=== PATIENT | female | born 1975 | race Caucasian/White ===

== ENCOUNTER 2016-08-24 21:38 | Emergency (ER) | payer MEDICARE, MEDICAID ==
[~2016-08-24] VITALS: Ht 160 cm; Wt 113.4 kg
[~2016-08-24 21:38] MED LIST: FIBERCON PO; FLAG500T; LEVA500T; METROCR.75 TOPICAL; PEPCID40 PO; PRIL20CA; PRILOSEC40 PO; PRILOSECOT PO; PROTONIX40 PO; TESSALO100 PO; TUSSIONEX PO; TYLENOLCOD PO; VIOXX50 PO; ZOLO50TA; [UNRECOGNIZED DRUG - OTHER]; [UNRECOGNIZED DRUG - OTHER] TOPICAL
[2016-08-24] MEDS ORDERED: VOLT1GEL24 TD (21:48)
[2016-08-24] MEDS ORDERED: TOPA100T8 PO (21:48)
[2016-08-24] MEDS ORDERED: VERAP80TA PO (21:48)
[2016-08-25 01:53] VITALS: BP 137/84
[2016-08-25] MEDS ORDERED: IBUPROFEN 800 MG TAB PO ONE (02:00)
--- NOTE | 2016-08-25 08:59 | REP ---
LEFT FOOT, FOUR VIEWS: There is no evidence of an acute fracture, dislocation or intrinsic bone disease. IMPRESSION: No fracture or dislocation. Signed by Jonathan Jiang MD 08/25/2016 04:35 P
--- NOTE | 2016-08-25 08:59 | REP ---
LEFT ANKLE: Four views of the left ankle are performed. There is no acute fracture or dislocation. No intrinsic osseous pathology is seen. The ankle mortise is anatomic. There is soft tissue swelling. IMPRESSION: No evidence of acute fracture or dislocation. Signed by Jonathan Jiang MD 08/25/2016 04:35 P
== END 2016-08-25 01:58 | disposition home or self-care (01) ==
LOC: M ED 23:22
DX: S92.332A Displaced fracture of third metatarsal bone, left foot, initial encounter for closed fracture (principal); W01.0XXA Fall on same level from slipping, tripping and stumbling without subsequent striking against object, initial encounter; Y92.018 Other place in single-family (private) house as the place of occurrence of the external cause; Y93.89 Activity, other specified; Y99.8 Other external cause status

== ENCOUNTER → 2016-11-15 | Outpatient (REF) | payer MEDICARE, MEDICAID ==
[~2016-11-15] MED LIST changes: +TOPA100T12 PO; +VERAP80TA PO; +VOLT1GEL15 TD
[2016-11-15 18:50] LABS: MEAN CORPUSCULAR HEMOGLOBIN 23.9 pg (27.0-33.0); MEAN CORPUSCULAR VOLUME 76.9 fl (80.0-96.0); RED CELL DISTRIBUTION WIDTH 15.7 % (11.5-14.5); WHITE BLOOD COUNT 6.8 K/mm3 (4.0-10.0)
[2016-11-15 19:11] LABS: ALBUMIN 3.5 GM/DL (3.2-5.2); ALKALINE PHOSPHATASE 118 U/L (45-117); ALT/SGPT 14 U/L (12-78); ANION GAP 9 MEQ/L (8-16); AST/SGOT 6 U/L (15-37); BILIRUBIN,TOTAL 0.5 MG/DL (0.2-1.0); BLOOD UREA NITROGEN 8 MG/DL (7-18); CALCIUM LEVEL 9.1 MG/DL (8.5-10.1); CARBON DIOXIDE LEVEL 26 MEQ/L (21-32); CHLORIDE LEVEL 106 MEQ/L (98-107); CREATININE FOR GFR 0.72 MG/DL (0.55-1.02); FREE T4 1.07 NG/DL (0.76-1.46); GLOMERULAR FILTRATION RATE > 60.0 (>60); GLUCOSE, FASTING 86 MG/DL (70-105); SODIUM LEVEL 141 MEQ/L (136-145)
== END ==
LOC: M SFHCLERA 10:26
PROVIDERS: ATTEND Family Medicine
DX: R11.2 Nausea with vomiting, unspecified (principal); Z79.899 Other long term (current) drug therapy
CPT/HCPCS: 80053; 83036; 83690; 84439; 84443; 85027; G0463

== ENCOUNTER → 2017-06-01 | Outpatient (REF) | payer MEDICARE, MEDICAID | LOC: M SFHCWAGY 10:18 | DX: Z12.4 Encounter for screening for malignant neoplasm of cervix (principal); R87.610 Atypical squamous cells of undetermined significance on cytologic smear of cervix (ASC-US) | CPT/HCPCS: G0123 ==

== ENCOUNTER → 2017-06-01 | Outpatient (CLI) | payer MEDICARE, MEDICAID | LOC: M WHC 09:42 | DX: Z12.31 Encounter for screening mammogram for malignant neoplasm of breast (principal); Z92.0 Personal history of contraception; Z12.4 Encounter for screening for malignant neoplasm of cervix; R87.610 Atypical squamous cells of undetermined significance on cytologic smear of cervix (ASC-US) | CPT/HCPCS: 77067; G0123 ==

== ENCOUNTER 2017-09-01 00:51 | Emergency (ER) | payer MEDICARE, MEDICAID | END 2017-09-01 04:15 | disposition home or self-care (01) | LOC: M ED 00:51 | DX: S90.31XA Contusion of right foot, initial encounter (principal); W19.XXXA Unspecified fall, initial encounter; Y92.009 Unspecified place in unspecified non-institutional (private) residence as the place of occurrence of the external cause; K21.9 Gastro-esophageal reflux disease without esophagitis; F33.9 Major depressive disorder, recurrent, unspecified; F41.9 Anxiety disorder, unspecified; Z79.899 Other long term (current) drug therapy | CPT/HCPCS: 73620 ==

== ENCOUNTER → 2018-01-03 | Outpatient (REF) | payer MEDICARE, MEDICAID ==
[2018-01-03 12:03] LABS: HEMATOCRIT 35.2 % (36.0-47.0); HEMOGLOBIN 10.5 g/dl (12.0-15.5); MEAN CORPUSCULAR HEMOGLOBIN 23.2 pg (27.0-33.0); MEAN CORPUSCULAR HGB CONC 29.8 g/dl (32.0-36.5); MEAN CORPUSCULAR VOLUME 77.7 fl (80.0-96.0); PLATELET COUNT, AUTOMATED 354 10^3/uL (150-450); RED BLOOD COUNT 4.53 10^6/uL (4.00-5.40); RED CELL DISTRIBUTION WIDTH 18.6 % (11.5-14.5); WHITE BLOOD COUNT 5.7 10^3/uL (4.0-10.0)
[2018-01-03 13:04] LABS: ALBUMIN 3.4 GM/DL (3.2-5.2); ALKALINE PHOSPHATASE 101 U/L (45-117); ALT/SGPT 15 U/L (12-78); ANION GAP 11 MEQ/L (8-16); AST/SGOT 11 U/L (7-37); BILIRUBIN,TOTAL 0.3 MG/DL (0.2-1.0); BLOOD UREA NITROGEN 12 MG/DL (7-18); CALCIUM LEVEL 8.4 MG/DL (8.5-10.1); CARBON DIOXIDE LEVEL 22 MEQ/L (21-32); CHLORIDE LEVEL 112 MEQ/L (98-107); CHOLESTEROL LEVEL 184 MG/DL (<200); CREATININE FOR GFR 0.63 MG/DL (0.55-1.30); FREE T4 0.94 NG/DL (0.76-1.46); GLOMERULAR FILTRATION RATE > 60.0 (>58); GLUCOSE, FASTING 71 MG/DL (70-100); HDL CHOLESTEROL 42 MG/DL (>40); LDL CHOLESTEROL 121.8 MG/DL (<100); NON-HDL-C 142 MG/DL; POTASSIUM SERUM 4.8 MEQ/L (3.5-5.1); SODIUM LEVEL 145 MEQ/L (136-145); TOTAL PROTEIN 6.8 GM/DL (6.4-8.2); TRIGLYCERIDES LEVEL 101 MG/DL (<150)
[2018-01-03 13:05] LABS: FOLATE > 24.0 NG/ML; TOTAL 25(OH) VITAMIN D 33.6 NG/ML (30.0-100.0); VITAMIN B12 LEVEL 299 PG/ML
== END ==
LOC: M SFHCPLAZ 08:34
DX: D51.9 Vitamin B12 deficiency anemia, unspecified (principal); G43.909 Migraine, unspecified, not intractable, without status migrainosus; F41.9 Anxiety disorder, unspecified; E78.2 Mixed hyperlipidemia; E55.9 Vitamin D deficiency, unspecified
CPT/HCPCS: 82746

== ENCOUNTER → 2018-05-21 | Outpatient (REF) | payer MEDICARE, MEDICAID ==
[~2018-05-21] MED LIST changes: +ZOFR4TAB16 PO
[2018-05-21 17:57] LABS: HEMOGLOBIN 11.3 g/dl (12.0-15.5); MEAN CORPUSCULAR HEMOGLOBIN 22.5 pg (27.0-33.0); MEAN CORPUSCULAR HGB CONC 29.7 g/dl (32.0-36.5); MEAN CORPUSCULAR VOLUME 75.5 fl (80.0-96.0); PLATELET COUNT, AUTOMATED 399 10^3/uL (150-450); RED BLOOD COUNT 5.03 10^6/uL (4.00-5.40); WHITE BLOOD COUNT 7.2 10^3/uL (4.0-10.0)
[2018-05-21 18:03] LABS: PERCENT SATURATION 4.9 % (13.2-45.0)
== END ==
LOC: M SFHCPLAZ 15:27
PROVIDERS: ATTEND Nurse Practitioner Family
DX: D50.9 Iron deficiency anemia, unspecified (principal); D51.9 Vitamin B12 deficiency anemia, unspecified
CPT/HCPCS: 36415; 82607; 82728; 82746; 83550; 85027; 85046; G0463

== ENCOUNTER → 2018-07-20 | Outpatient (REF) | payer MEDICARE, MEDICAID ==
[2018-07-20 16:58] LABS: INFLUENZA A AMPLIFICATION NEGATIVE (NEGATIVE); INFLUENZA B AMPLIFICATION NEGATIVE (NEGATIVE)
== END ==
LOC: M LAB REF 10:13
PROVIDERS: ATTEND Nurse Practitioner Family
DX: J11.1 Influenza due to unidentified influenza virus with other respiratory manifestations (principal)

== ENCOUNTER → 2018-08-06 | Outpatient (CLI) | payer MEDICARE, MEDICAID ==
--- NOTE | 2018-08-06 15:46 | REPMRS ---
Patient History The patient states she had a clinical breast exam in 07/2018. Patient is nulliparous. Family history of prostate cancer at age 54 in father, breast cancer at age 50 in maternal aunt. Taking hormonal contraceptives for 11 years. Digital Woman Screen Mammo: August 06, 2018 - Exam #: [id number] Bilateral CC and MLO view(s) were taken. Technologist: Violet Sharp, Technologist Prior study comparison: June 01, 2017, digital woman screen mammo performed at [facility]. FINDINGS: There are scattered fibroglandular densities. There has been no change in the appearance of the mammogram from the prior studies. There is a mild amount of scattered fibroglandular density which is fairly symmetric. There is no interval development of dominant mass, architectural distortion, or clustered microcalcification suggestive of malignancy. 3-D tomosynthesis shows no additional findings. Assessment: BI-RADS/ACR category 1 mammogram. Negative Mammogram. Recommendation Breast MRI of both breasts in 6 months. Routine screening mammogram of both breasts in 1 year (for women over age 40). This patient's Lifetime Breast Cancer RIsk is estimated at 20.4 %. Annual screening Breast MRI scanniing is recommended for patient's whose lifetime risk assessment is over 20%. This mammogram was interpreted with the aid of an FDA-approved computer-aided dectection system. Electronically Signed By: Marek Fan MD 08/06/18 [id number]
== END ==
LOC: M WHC 10:47
PROVIDERS: ATTEND Nurse Practitioner Women's Health
DX: Z12.31 Encounter for screening mammogram for malignant neoplasm of breast (principal); Z80.42 Family history of malignant neoplasm of prostate; Z92.0 Personal history of contraception
CPT/HCPCS: 77063; 77067; G0463

== ENCOUNTER → 2018-11-04 | Outpatient (REF) | payer MEDICARE, MEDICAID ==
[2018-11-04 12:29] LABS: HEMATOCRIT 37.5 % (36.0-47.0); HEMOGLOBIN 11.2 g/dl (12.0-15.5); MEAN CORPUSCULAR HEMOGLOBIN 23.4 pg (27.0-33.0); MEAN CORPUSCULAR HGB CONC 29.9 g/dl (32.0-36.5); MEAN CORPUSCULAR VOLUME 78.3 fl (80.0-96.0); PLATELET COUNT, AUTOMATED 282 10^3/uL (150-450); RED BLOOD COUNT 4.79 10^6/uL (4.00-5.40); WHITE BLOOD COUNT 5.1 10^3/uL (4.0-10.0)
== END ==
LOC: M SFHCPLAZ 08:51
PROVIDERS: ATTEND Nurse Practitioner Family
DX: D50.9 Iron deficiency anemia, unspecified (principal)

== ENCOUNTER → 2019-02-13 | Outpatient (CLI) | payer MEDICARE, MEDICAID ==
[~2019-02-13] MED LIST changes: +PROHANCE 279.3MG/ML 15ML VIAL (A9576) As Ordered ONE; +PROHANCE 279.3MG/ML 5ML VIAL (A9576) As Ordered ONE
--- NOTE | 2019-02-13 16:19 | REP ---
Bilateral breast MRI study without and with IV gadolinium: History: High risk breast cancer screening study. Positive family history of malignancy. Comparison mammography August 06, 2018. Technique: 3 Yvonne MRI imaging was performed with a dedicated breast coil. Axial, coronal, and sagittal T1 and T2-weighted scans were obtained with and without fat saturation in the usual fashion. The study includes dynamically acquired post gadolinium enhanced imaging subtraction imaging. Maximal intensity projection and multiplanar re-formation imaging is included as well. The study was interpreted with the aid of [employer], an FDA approved computer-aided detection (CAD) software program, on a dedicated breast MRI work station. The gadolinium enhancement dose is 19 ml of intravenous ProHance. Findings: Axial and coronal T2-weighted scans show no evidence of axillary lymphadenopathy or significant breast cystic change on either side. High-resolution pre and postcontrast imaging shows no suspicious morphologic abnormality in either breast. There is a mild pattern of fibroglandular tissue bilaterally. There is minimal background parenchymal enhancement. Dynamically acquired sequential post contrast images show no suspicious focus of enhancement and washout in either breast to suggest malignancy. Subtraction images are unremarkable. Impression: BIRADS category 1 negative bilateral breast MRI study. Repeat screening breast MRI study suggested 1 year for patient's whose breast cancer lifetime risk assessment is greater than 20% Electronically Signed by Ge Fan MD 02/13/2019 06:29 P
== END ==
LOC: M RAD 09:39
PROVIDERS: ATTEND Nurse Practitioner Women's Health
DX: Z80.3 Family history of malignant neoplasm of breast (principal); Z12.31 Encounter for screening mammogram for malignant neoplasm of breast; N60.31 Fibrosclerosis of right breast; N60.32 Fibrosclerosis of left breast
CPT/HCPCS: A9576; C8908

== ENCOUNTER → 2019-03-20 | Outpatient (CLI) | payer MEDICARE, MEDICAID ==
[~2019-03-20] MED LIST changes: +GLUCAGON FOR INJ 1 MG VIAL (J1610) As Ordered ONE; +ISOVUE-370 76% 100ML VIAL (Q9967) As Ordered ONE; -PROHANCE 279.3MG/ML 15ML VIAL (A9576) As Ordered ONE; -PROHANCE 279.3MG/ML 5ML VIAL (A9576) As Ordered ONE; +VoLumen 0.1% SUSPENSION 450ML BOTTLE As Ordered ONE
--- NOTE | 2019-03-20 13:06 | REP ---
CT Enterography: With IV and oral contrast. History: Iron deficiency anemia. Comparison study: Comparison CT abdomen and pelvis December 23, 2015. CT enterography Technique: The patient ingested oral Volumen for PO contrast per protocol. 0.6 mg of intravenous glucagon is administered. 100 ml of Isovue 370 is given intravenously for intravenous contrast. Helical scanning is acquired. Arterial phase and delayed phase imaging was acquired. Thick slab coronal and sagittal MIP images are generated. In addition coronal and sagittal multiplanar re-formation images are generated and reviewed along with axial images. CT enterography findings: Preliminary digital cath lab tech radiograph demonstrates an unremarkable bowel gas pattern. The lung bases are clear. There is mild diffuse fatty infiltration of the liver. The patient is status post gastric bypass procedure. The efferent jejunal loop is seen coursing in front of the transverse colon. There is mild air and fluid distension of the gastric pouch question mural thickening at the gastrojejunostomy anastomosis. No adrenal lesion is seen. The spleen is unremarkable. The kidneys enhance symmetrically are morphologically intact. There are two adjacent small bowel mesenteric lymph nodes in the left upper abdomen. These measure 13 and 12 mm in greatest diameter respectively. These lymph nodes are only slightly larger than on the December 23, 2015 prior study. No other visible small bowel mesenteric lymph nodes. No retroperitoneal adenopathy is seen. There is an IUD in place in the uterus. There is a small right fundal uterine fibroid. No ovarian abnormality is appreciated. Urinary bladder is intact. No abdominal wall defect is seen. Small and large bowel loops are otherwise unremarkable. The gallbladder is surgically absent. Impression: Status post gastric bypass. Mild dilation of the gastric pouch and question of mucosal thickening at the gastrojejunostomy. Question marginal ulcer. Two borderline mesenteric lymph nodes in the left upper abdomen. 1.3 cm in diameter. These measured 11 and 9 mm in diameter in 2016. No other abnormality. Electronically Signed by Ge Fan MD 03/20/2019 01:13 P
== END ==
LOC: M RAD 10:02
PROVIDERS: ATTEND Physician Assistant Medical
DX: D50.9 Iron deficiency anemia, unspecified (principal); Z98.84 Bariatric surgery status; D25.9 Leiomyoma of uterus, unspecified; Z97.5 Presence of (intrauterine) contraceptive device
CPT/HCPCS: 74177; J1610; Q9967

== ENCOUNTER 2019-05-13 11:47 | Day surgery (SDC) | payer MEDICARE, MEDICAID ==
[~2019-05-13] VITALS: Ht 160 cm; Wt 96.2 kg
[~2019-05-13 11:47] MED LIST changes: +BUSP1TAB PO; +FAMO40TA3 PO; -GLUCAGON FOR INJ 1 MG VIAL (J1610) As Ordered ONE; -ISOVUE-370 76% 100ML VIAL (Q9967) As Ordered ONE; +MIRE1IUD IU; +MULTCAP PO; +NS 1,000 ML IV ONE; +OMEP40CA97 PO; -VoLumen 0.1% SUSPENSION 450ML BOTTLE As Ordered ONE
[2019-05-13] MEDS ORDERED: propofoL 200 MG/20 ML VIAL As Ordered ONE (13:31)
[2019-05-13] MEDS ORDERED: LIDOCAINE 2% INJ 100 MG/5 ML SDV (FOR ANES.) As Ordered ONE (13:31)
--- NOTE | 2019-05-13 14:23 | ROOR ---
Patient Name: Silva Andujar Procedure Date: 05/13/2019 1:37 PM Date of : 1975 Age: 44 Room: [facility] Gender: Female Note Status: Finalized Procedure: Upper GI endoscopy Indications: Iron deficiency anemia, Heartburn Providers: Michael Gagnon MD Referring MD: Ana Little NP Requesting Provider: Medicines: Monitored Anesthesia Care Complications: No immediate complications. Procedure: Pre-Anesthesia Assessment: - Prior to the procedure, a History and Physical was performed, and patient medications and allergies were reviewed. The patient is competent. The risks and benefits of the procedure and the sedation options and risks were discussed with the patient. All questions were answered and informed consent was obtained. Patient identification and proposed procedure were verified by the physician, the nurse and the anesthesiologist in the procedure room. Mental Status Examination: alert and oriented. Airway Examination: normal oropharyngeal airway and neck mobility. Respiratory Examination: clear to auscultation. CV Examination: normal. Prophylactic Antibiotics: The patient does not require prophylactic antibiotics. Prior Anticoagulants: The patient has taken no previous anticoagulant or antiplatelet agents. ASA Grade Assessment: II - A patient with mild systemic disease. After reviewing the risks and benefits, the patient was deemed in satisfactory condition to undergo the procedure. The anesthesia plan was to use monitored anesthesia care (MAC). Immediately prior to administration of medications, the patient was re-assessed for adequacy to receive sedatives. The heart rate, respiratory rate, oxygen saturations, blood pressure, adequacy of pulmonary ventilation, and response to care were monitored throughout the procedure. The physical status of the patient was re-assessed after the procedure. The Endoscope was introduced through the mouth, and advanced to the second part of duodenum. The upper GI endoscopy was accomplished without difficulty. The patient tolerated the procedure well. Findings: The Z-line was regular and was found 36 cm from the incisors. The examined esophagus was normal. Evidence of a gastric bypass was found. A gastric pouch with a medium size was found. The staple line appeared intact. The gastrojejunal anastomosis was characterized by edema, erythema, inflammation and ulceration and stenosis. This was traversed. The jejunojejunal anastomosis was characterized by healthy appearing mucosa. The fxfgoxxs-be-lsaikqa limb was not examined as it could not be found. Two biopsies were obtained in the gastric body and at the anastomosis with cold forceps for histology and Helicobacter pylori testing. Verification of patient identification for the specimen was done by the physician, nurse and dietetic technician registered using the patient's name, date and medical record number. Estimated blood loss was minimal. The examined jejunum was normal. Biopsies for histology were taken with a cold forceps for evaluation of celiac disease. Impression: - Z-line regular, 36 cm from the incisors. - Normal esophagus. - Gastric bypass with a medium-sized pouch and intact staple line. Gastrojejunal anastomosis characterized by edema, erythema, inflammation and ulceration and stenosis. - Normal examined jejunum. Biopsied. - Two biopsies were obtained in the gastric body and at the anastomosis. Recommendation: - Patient has a contact number available for emergencies. The signs and symptoms of potential delayed complications were discussed with the patient. Return to normal activities tomorrow. Written discharge instructions were provided to the patient. - Resume previous diet. - Use Prilosec (omeprazole) 40 mg PO Daily - to be taken watershed manager on empty stomach for 3 months. - Use Pepcid (famotidine) 20 mg PO Q 12 hr for 3 months. - Follow an antireflux regimen. - Telephone GI clinic for pathology results in 2 weeks. - Return to GI clinic in [facility] (address [address], [address], [place], [facility]) in 4 -- 6 weeks. Please call GI clinic @ [phone] for apppointment date and time. - Return to primary care physician. Michael Gagnon MD Michael Gagnon MD 05/13/2019 2:22:48 PM Electronically signed by Michael Gagnon MD Number of Addenda: 0 Note Initiated On: 05/13/2019 1:37 PM Estimated Blood Loss: Estimated blood loss was minimal.
--- NOTE | 2019-05-13 14:27 | ROOR ---
Patient Name: Silva Andujar Procedure Date: 05/13/2019 1:38 PM Date of : 1975 Age: 44 Room: [facility] Gender: Female Note Status: Finalized Procedure: Colonoscopy Indications: Iron deficiency anemia Providers: Michael Gagnon MD Referring MD: Ana Little NP Requesting Provider: Medicines: Monitored Anesthesia Care Complications: No immediate complications. Procedure: Pre-Anesthesia Assessment: - Prior to the procedure, a History and Physical was performed, and patient medications and allergies were reviewed. The patient is competent. The risks and benefits of the procedure and the sedation options and risks were discussed with the patient. All questions were answered and informed consent was obtained. Patient identification and proposed procedure were verified by the physician, the nurse and the anesthesiologist in the procedure room. Mental Status Examination: alert and oriented. Airway Examination: normal oropharyngeal airway and neck mobility. Respiratory Examination: clear to auscultation. Prophylactic Antibiotics: The patient does not require prophylactic antibiotics. Prior Anticoagulants: The patient has taken no previous anticoagulant or antiplatelet agents. ASA Grade Assessment: II - A patient with mild systemic disease. After reviewing the risks and benefits, the patient was deemed in satisfactory condition to undergo the procedure. The anesthesia plan was to use monitored anesthesia care (MAC). Immediately prior to administration of medications, the patient was re-assessed for adequacy to receive sedatives. The heart rate, respiratory rate, oxygen saturations, blood pressure, adequacy of pulmonary ventilation, and response to care were monitored throughout the procedure. The physical status of the patient was re-assessed after the procedure. The Colonoscope was introduced through the anus and advanced to the terminal ileum, with identification of the appendiceal orifice and IC valve. The colonoscopy was performed without difficulty. The patient tolerated the procedure well. The quality of the bowel preparation was fair except the sigmoid colon was poor, the descending colon was poor and the transverse colon was poor. The terminal ileum, ileocecal valve, appendiceal orifice, and rectum were photographed. Scope insertion time was 4 minutes. Scope withdrawal time was 9 minutes. The total duration of the procedure was 14 minutes. Findings: The perianal and digital rectal examinations were normal. The terminal ileum appeared normal. A large amount of stool was found from sigmoid to transverse colon, making visualization difficult. Lavage of the area was performed using a large amount of sterile water, resulting in incomplete clearance with continued poor visualization. A 3 mm polyp was found in the ascending colon. The polyp was sessile. The polyp was removed with a cold biopsy forceps. Resection and retrieval were complete. Verification of patient identification for the specimen was done by the physician and nurse using the patient's name, date and medical record number. Estimated blood loss was minimal. Patchy moderate mucosal changes characterized by erythema, friability and granularity were found in the descending colon. Biopsies were taken with a cold forceps for histology. Non-bleeding external and internal hemorrhoids were found during retroflexion. The hemorrhoids were medium-sized. Impression: - The examined portion of the ileum was normal. - Stool from sigmoid to transverse colon. - One 3 mm polyp in the ascending colon, removed with a cold biopsy forceps. Resected and retrieved. - Patchy moderate mucosal changes were found in the descending colon. Biopsied. - Non-bleeding external and internal hemorrhoids. Recommendation: - Patient has a contact number available for emergencies. The signs and symptoms of potential delayed complications were discussed with the patient. Return to normal activities tomorrow. Written discharge instructions were provided to the patient. - High fiber diet. - Continue present medications. - Await pathology results. - Repeat colonoscopy in 1 year to check healing and because the bowel preparation was poor. - Return to GI clinic in [facility] (address [address], [address], [place], [facility]) in 4 -- 6 weeks. Please call GI clinic @ [phone] for apppointment date and time. - Return to primary care physician. Michael Gagnon MD Michael Gagnon MD 05/13/2019 2:27:20 PM Electronically signed by Michael Gagnon MD Number of Addenda: 0 Note Initiated On: 05/13/2019 1:38 PM Estimated Blood Loss: Estimated blood loss was minimal.
[2019-05-13 15:00] VITALS: BP 135/87
== END 2019-05-13 15:25 | disposition home or self-care (01) ==
LOC: M OPP 11:47
PROVIDERS: ATTEND Internal Medicine Gastroenterology
DX: K64.8 Other hemorrhoids (principal); D12.2 Benign neoplasm of ascending colon; K63.89 Other specified diseases of intestine; D50.9 Iron deficiency anemia, unspecified; R12 Heartburn; Z98.84 Bariatric surgery status

== ENCOUNTER → 2019-07-01 | Outpatient (CLI) | payer MEDICARE, MEDICAID ==
[~2019-07-01] MED LIST changes: -NS 1,000 ML IV ONE
[2019-07-01 11:02] LABS: HEMATOCRIT 40.2 % (36.0-47.0); MEAN CORPUSCULAR HEMOGLOBIN 22.4 pg (27.0-33.0); MEAN CORPUSCULAR HGB CONC 29.9 g/dl (32.0-36.5); MEAN CORPUSCULAR VOLUME 75.1 fl (80.0-96.0); PLATELET COUNT, AUTOMATED 332 10^3/uL (150-450); RED BLOOD COUNT 5.35 10^6/uL (4.00-5.40); WHITE BLOOD COUNT 5.8 10^3/uL (4.0-10.0)
[2019-07-01 11:12] LABS: ALT/SGPT 14 U/L (12-78); BILIRUBIN,TOTAL 0.5 MG/DL (0.2-1.0); BLOOD UREA NITROGEN 16 MG/DL (7-18); CALCIUM LEVEL 8.8 MG/DL (8.5-10.1); CARBON DIOXIDE LEVEL 24 MEQ/L (21-32); CHLORIDE LEVEL 114 MEQ/L (98-107); CHOLESTEROL LEVEL 216 MG/DL (<200); CHOLESTEROL RISK RATIO 4.909 (<5); CREATININE FOR GFR 0.86 MG/DL (0.55-1.30); FERRITIN 3 NG/ML (8-252); FREE T4 0.98 NG/DL (0.76-1.46); GLOMERULAR FILTRATION RATE > 60.0 (>58); GLUCOSE, FASTING 87 MG/DL (70-100); HDL CHOLESTEROL 44 MG/DL (>40); IRON (FE) 31 UG/DL (50-170); LDL CHOLESTEROL 151 MG/DL (<100); MAGNESIUM LEVEL 2.5 MG/DL (1.8-2.4); NON-HDL-C 172 MG/DL; PERCENT SATURATION 7.4 % (13.2-45.0); PHOSPHORUS LEVEL 3.2 MG/DL (2.5-4.9); POTASSIUM SERUM 3.9 MEQ/L (3.5-5.1); SODIUM LEVEL 143 MEQ/L (136-145); TOTAL IRON BINDING CAPACITY 420 UG/DL (250-450); TOTAL PROTEIN 7.4 GM/DL (6.4-8.2); TRIGLYCERIDES LEVEL 104 MG/DL (<150)
[2019-07-01 11:48] LABS: VITAMIN B12 LEVEL 275 PG/ML (247-911)
[2019-07-05 00:07] LABS: VITAMIN A, RETINOL LEVEL 48.7 ug/dL (20.1-62.0); VITAMIN B1 LEVEL WHOLE BLOOD 81.5 nmol/L (66.5-200.0)
== END ==
LOC: M PLALAB 08:54
PROVIDERS: ATTEND Family Medicine
DX: E55.9 Vitamin D deficiency, unspecified (principal); D51.9 Vitamin B12 deficiency anemia, unspecified; E78.2 Mixed hyperlipidemia; D50.9 Iron deficiency anemia, unspecified; Z13.1 Encounter for screening for diabetes mellitus; K90.89 Other intestinal malabsorption; F41.1 Generalized anxiety disorder

== ENCOUNTER → 2019-10-20 | Outpatient (CLI) | payer MEDICARE, MEDICAID ==
[~2019-10-20] MED LIST changes: +MIRA3350 PO; +VENL75CA47 PO; +ZYRTTAB8 PO
== END ==
LOC: M LABSMTC 09:42
PROVIDERS: ATTEND Anesthesiology
DX: Z03.818 Encounter for observation for suspected exposure to other biological agents ruled out (principal); Z11.59 Encounter for screening for other viral diseases
CPT/HCPCS: C9803; U0003

== ENCOUNTER 2019-10-23 08:21 | Day surgery (SDC) | payer MEDICARE, MEDICAID ==
[~2019-10-23] VITALS: Ht 160 cm; Wt 95.0 kg
[~2019-10-23 08:21] MED LIST changes: -MIRA3350 PO; -ZYRTTAB8 PO
[2019-10-23] MEDS ORDERED: ZYRTTAB8 PO (08:44)
[2019-10-23] MEDS ORDERED: MIRA3350 PO (08:44)
[2019-10-23] MEDS ORDERED: NS 1,000 ML IV ONE (08:45)
[2019-10-23] MEDS ORDERED: LIDOCAINE 2% 100MG/5ML SDV (FOR ANES.) As Ordered ONE (09:53)
[2019-10-23] MEDS ORDERED: fentaNYL 100 MCG/2 ML INJECTION (J3010) As Ordered ONE (09:53)
[2019-10-23] MEDS ORDERED: propofoL 500 MG/50 ML VIAL As Ordered ONE (09:53)
[2019-10-23 10:20] VITALS: BP 150/84
--- NOTE | 2019-10-23 10:44 | ROOR ---
Patient Name: Silva Andujar Procedure Date: 10/23/2019 9:44 AM Date of : 1975 Age: 44 Room: [facility] Gender: Female Note Status: Finalized Procedure: Upper GI endoscopy Indications: Epigastric abdominal pain, Heartburn Providers: Michael Gagnon MD Referring MD: Veronica Bone MD Requesting Provider: Medicines: Monitored Anesthesia Care Complications: No immediate complications. Procedure: Pre-Anesthesia Assessment: - Prior to the procedure, a History and Physical was performed, and patient medications and allergies were reviewed. The patient is competent. The risks and benefits of the procedure and the sedation options and risks were discussed with the patient. All questions were answered and informed consent was obtained. Patient identification and proposed procedure were verified by the physician, the nurse and the anesthesiologist in the procedure room. Mental Status Examination: alert and oriented. Airway Examination: normal oropharyngeal airway and neck mobility. Respiratory Examination: clear to auscultation. CV Examination: normal. Prophylactic Antibiotics: The patient does not require prophylactic antibiotics. Prior Anticoagulants: The patient has taken no previous anticoagulant or antiplatelet agents. ASA Grade Assessment: II - A patient with mild systemic disease. After reviewing the risks and benefits, the patient was deemed in satisfactory condition to undergo the procedure. The anesthesia plan was to use monitored anesthesia care (MAC). Immediately prior to administration of medications, the patient was re-assessed for adequacy to receive sedatives. The heart rate, respiratory rate, oxygen saturations, blood pressure, adequacy of pulmonary ventilation, and response to care were monitored throughout the procedure. The physical status of the patient was re-assessed after the procedure. The Endoscope was introduced through the mouth, and advanced to the afferent and efferent jejunal loops. The upper GI endoscopy was accomplished without difficulty. The patient tolerated the procedure well. Findings: The examined esophagus was normal. The Z-line was regular and was found 36 cm from the incisors. Evidence of a Kristina-en-Y gastrojejunostomy was found. The gastrojejunal anastomosis was characterized by congestion, erythema, severe stenosis and ulceration. This was traversed. The aakir-lh-ywygyqh limb was characterized by congestion, inflammation, severe stenosis and ulceration. The jejunojejunal anastomosis was characterized by healthy appearing mucosa. The jjbuisgj-vr-vliitfe limb was not examined as it could not be traversed. Two biopsies were obtained at the anastomosis with cold forceps for histology. Verification of patient identification for the specimen was done by the physician and nurse using the patient's name, date and medical record number. Estimated blood loss was minimal. Normal mucosa was found in the jejunum. Impression: - Normal esophagus. - Z-line regular, 36 cm from the incisors. - Kristina-en-Y gastrojejunostomy with gastrojejunal anastomosis characterized by congestion, erythema, ulceration and severe stenosis. - Normal mucosa was found in the jejunum. - Two biopsies were obtained at the anastomosis. Recommendation: - Patient has a contact number available for emergencies. The signs and symptoms of potential delayed complications were discussed with the patient. Return to normal activities tomorrow. Written discharge instructions were provided to the patient. - Advance diet as tolerated. - Post gastric bypass diet (small frequent meals and avoid fatty/ fried foods). - Use Pepcid (famotidine) 20 mg PO Twice daily ( take early education teacher on empty stomach and at bedtime) for 3 months. - Use sucralfate tablets 1 gram PO QID for 6 weeks. - Await pathology results. - Repeat upper endoscopy in 3 months to check healing, per protocol and for retreatment. - Return to GI clinic in [facility] (address [address], [address], [place], [address]) in 4 -- 6 weeks. Please call GI clinic @ [phone] for apppointment date and time. - Return to primary care physician. Michael Gagnon MD Michael Gagnon MD 10/23/2019 10:44:08 AM Electronically signed by Michael Gagnon MD Number of Addenda: 0 Note Initiated On: 10/23/2019 9:44 AM Estimated Blood Loss: Estimated blood loss was minimal.
== END 2019-10-23 10:52 | disposition home or self-care (01) ==
LOC: M OPP 08:21
PROVIDERS: ATTEND Internal Medicine Gastroenterology
DX: R12 Heartburn (principal); Z98.0 Intestinal bypass and anastomosis status; Z98.84 Bariatric surgery status; Z79.899 Other long term (current) drug therapy
CPT/HCPCS: 43239; 88305; J3010

== ENCOUNTER → 2019-11-04 | Outpatient (REF) | payer MEDICARE, MEDICAID ==
[~2019-11-04] MED LIST changes: +MIRA3350 PO; +ZYRTTAB8 PO
== END ==
LOC: M SFHCWAGY 15:00
PROVIDERS: ATTEND Nurse Practitioner Women's Health
DX: Z12.4 Encounter for screening for malignant neoplasm of cervix (principal)

== ENCOUNTER → 2019-11-25 | Outpatient (CLI) | payer MEDICARE, MEDICAID ==
[~2019-11-25] MED LIST changes: +AIMO70IN; +MAXA10TA14 PO; +SUCR1TAB56; +TOPI25TA10
--- NOTE | 2019-12-21 10:19 | REPMRS ---
Patient History The patient states she had a clinical breast exam in October 2019. Patient is nulliparous. Family history of prostate cancer at age 54 in father, breast cancer at age 50 in maternal aunt. Taking hormonal contraceptives for 11 years. Digital Woman Screen Mammo: November 25, 2019 - Exam #: [id number] Bilateral CC and MLO view(s) were taken. Technologist: Lorena Jenkins, Technologist Prior study comparison: August 06, 2018, bilateral digital woman screen mammo performed at [facility]. June 01, 2017, digital woman screen mammo performed at [facility]. FINDINGS: There are scattered fibroglandular densities. There has been no change in the appearance of the mammogram from the prior studies. There is a mild amount of scattered fibroglandular density which is fairly symmetric. There is no interval development of dominant mass, architectural distortion, or grouped microcalcification suggestive of malignancy. 3-D tomosynthesis shows no additional findings. Report was delayed due to a protracted network disruption experienced by this facility. Assessment: BI-RADS/ACR category 1 mammogram. Negative Mammogram. Recommendation Breast MRI of both breasts in 6 months. Routine screening mammogram of both breasts in 1 year (for women over age 40). This patient's Lifetime Breast Cancer Risk is estimated at 20.2 %. Annual screening Breast MRI scanniing is recommended for patient's whose lifetime risk assessment is over 20%. This mammogram was interpreted with the aid of an FDA-approved computer-aided dectection system. Electronically Signed By: Marek Fan MD 12/21/19 [id number]
== END ==
LOC: M WHC 10:37
PROVIDERS: ATTEND Nurse Practitioner Women's Health
DX: Z12.31 Encounter for screening mammogram for malignant neoplasm of breast (principal)

== ENCOUNTER → 2020-03-04 | Outpatient (CLI) | payer MEDICARE, MEDICAID | LOC: M LABSMTC 11:42 | PROVIDERS: ATTEND Anesthesiology | DX: Z01.812 Encounter for preprocedural laboratory examination (principal); Z20.828 Contact with and (suspected) exposure to other viral communicable diseases | CPT/HCPCS: C9803; U0003 ==

== ENCOUNTER 2020-03-09 07:31 | Day surgery (SDC) | payer MEDICARE, MEDICAID ==
[~2020-03-09] VITALS: Ht 160 cm; Wt 94.8 kg
[~2020-03-09 07:31] MED LIST changes: +NS 1,000 ML IV ONE
[2020-03-09] MEDS ORDERED: LIDOCAINE 2% 100MG/5ML SDV (FOR ANES.) As Ordered ONE (08:09)
[2020-03-09] MEDS ORDERED: propofoL 200 MG/20 ML VIAL As Ordered ONE (08:09)
--- NOTE | 2020-03-09 09:04 | ROOR ---
Patient Name: Silva Andujar Procedure Date: 03/09/2020 8:27 AM Date of : 1975 Age: 45 Room: [facility] Gender: Female Note Status: Finalized Procedure: Upper GI endoscopy Indications: Follow-up of post-bariatric anastomotic stenosis, For therapy of post-bariatric anastomotic stenosis Providers: Michael Gagnon MD Referring MD: Veronica Bone MD Requesting Provider: Medicines: Monitored Anesthesia Care Complications: No immediate complications. Procedure: Pre-Anesthesia Assessment: - Prior to the procedure, a History and Physical was performed, and patient medications and allergies were reviewed. The patient is competent. The risks and benefits of the procedure and the sedation options and risks were discussed with the patient. All questions were answered and informed consent was obtained. Patient identification and proposed procedure were verified by the physician, the nurse and the anesthesiologist in the procedure room. Mental Status Examination: alert and oriented. Airway Examination: normal oropharyngeal airway and neck mobility. Respiratory Examination: clear to auscultation. CV Examination: normal. Prophylactic Antibiotics: The patient does not require prophylactic antibiotics. Prior Anticoagulants: The patient has taken no previous anticoagulant or antiplatelet agents. ASA Grade Assessment: II - A patient with mild systemic disease. After reviewing the risks and benefits, the patient was deemed in satisfactory condition to undergo the procedure. The anesthesia plan was to use monitored anesthesia care (MAC). Immediately prior to administration of medications, the patient was re-assessed for adequacy to receive sedatives. The heart rate, respiratory rate, oxygen saturations, blood pressure, adequacy of pulmonary ventilation, and response to care were monitored throughout the procedure. The physical status of the patient was re-assessed after the procedure. The Endoscope was introduced through the mouth, and advanced to the second part of duodenum. The upper GI endoscopy was accomplished without difficulty. The patient tolerated the procedure well. Findings: The Z-line was regular and was found 36 cm from the incisors. Evidence of a Kristina-en-Y gastrojejunostomy was found. The gastrojejunal anastomosis was characterized by healthy appearing mucosa. This was traversed. The iexng-lz-jetrlau limb was characterized by stenosis 1 cm (inner diameter). The jejunojejunal anastomosis was characterized by healthy appearing mucosa. The ciziizqa-et-pgriets limb was not examined as it could not be found. Two biopsies were obtained in the gastric fundus with cold forceps for histology and Helicobacter pylori testing. Verification of patient identification for the specimen was done by the physician and nurse using the patient's name, date and medical record number. Estimated blood loss was minimal. A TTS dilator was passed through the scope. Dilation with an 18-19-20 mm anastomotic balloon dilator was performed. The dilation site was examined following endoscope reinsertion and showed moderate improvement in luminal narrowing and no bleeding, mucosal tear or perforation. The examined jejunum was normal. Impression: - Z-line regular, 36 cm from the incisors. - Kristina-en-Y gastrojejunostomy with gastrojejunal anastomosis characterized by healthy appearing mucosa. Dilated. - Normal examined jejunum. - Two biopsies were obtained in the gastric fundus. Recommendation: - Patient has a contact number available for emergencies. The signs and symptoms of potential delayed complications were discussed with the patient. Return to normal activities tomorrow. Written discharge instructions were provided to the patient. - Post gastric bypass diet (small frequent meals and avoid fatty/ fried foods). - Continue present medications. - Follow an antireflux regimen. - Await pathology results. - Telephone GI clinic for pathology results in 2 weeks. - Repeat upper endoscopy depending on the symptoms and clinical response. - Return to primary care physician. Michael Gagnon MD Michael Gagnon MD 03/09/2020 9:04:10 AM Electronically signed by Michael Gagnon MD Number of Addenda: 0 Note Initiated On: 03/09/2020 8:27 AM Estimated Blood Loss: Estimated blood loss was minimal.
[2020-03-09 09:15] VITALS: BP 135/88
== END 2020-03-09 09:25 | disposition home or self-care (01) ==
LOC: M OPP 07:31
PROVIDERS: ATTEND Internal Medicine Gastroenterology
DX: K95.89 Other complications of other bariatric procedure (principal); Z98.0 Intestinal bypass and anastomosis status; K21.9 Gastro-esophageal reflux disease without esophagitis; Z79.899 Other long term (current) drug therapy; Z88.8 Allergy status to other drugs, medicaments and biological substances; Z80.0 Family history of malignant neoplasm of digestive organs; Z98.84 Bariatric surgery status

== ENCOUNTER → 2020-04-06 | Outpatient (CLI) | payer SELFPAY ==
[~2020-04-06] MED LIST changes: -NS 1,000 ML IV ONE
== END ==
LOC: M LABSMTC 14:54
PROVIDERS: ATTEND Pediatrics
DX: Z11.59 Encounter for screening for other viral diseases (principal)

== ENCOUNTER → 2020-05-25 | Outpatient (CLI) | payer MEDICARE, MEDICAID ==
[~2020-05-25] MED LIST changes: -TOPI25TA10; +TOPI25TA10 PO
== END ==
LOC: M LABSMTC 13:43
PROVIDERS: ATTEND Pediatrics
DX: Z11.52 Encounter for screening for COVID-19 (principal)

== ENCOUNTER → 2020-05-31 | Outpatient (CLI) | payer MEDICARE, MEDICAID ==
--- NOTE | 2020-05-31 15:53 | REPPI ---
INDICATION: BRONCHITIS. COMPARISON: Comparison chest x-ray December 22, 2015. TECHNIQUE: Two views.. FINDINGS: The lungs are well inflated and free of infiltrate. The pleural angles are sharp. The heart size is normal. Pulmonary vasculature is not increased. No significant bony abnormality is seen. There are surgical clips in right upper quadrant of the abdomen consistent with previous cholecystectomy. IMPRESSION: Negative chest x-ray. <Electronically signed by Marek Fan > 05/31/20 [id number]
== END ==
LOC: M PLAIMG 14:35
PROVIDERS: ATTEND Physician Assistant
DX: J40 Bronchitis, not specified as acute or chronic (principal)
CPT/HCPCS: 71046; G0463

== ENCOUNTER → 2020-06-04 | Outpatient (CLI) | payer MEDICARE, MEDICAID ==
[~2020-06-04] MED LIST changes: +PROHANCE 279.3MG/ML 15ML VIAL As Ordered ONE; +PROHANCE 279.3MG/ML 5ML VIAL As Ordered ONE
--- NOTE | 2020-06-04 14:08 | REP ---
INDICATION: DENSE BREAST TISSUE ON MAMMO, FAMILY HISTORY. COMPARISON: Comparison mammography November 25, 2019. Comparison MRI study February 13, 2019. TECHNIQUE: Three Yvonne MRI imaging was performed with a dedicated breast coil. Axial, coronal, and sagittal T1 and T2 weighted scans were obtained with and without fat saturation in the usual fashion. The study includes dynamically acquired post gadolinium-enhanced imaging with image subtraction. Maximum intensity projection and multi planar reformation imaging is included as well. This study is interpreted with the aid of [employer], an FDA approved computer aided detection (CAD) software program, on a dedicated breast MRI workstation. The gadolinium enhancement dose is 20 mL of intravenous ProHance. FINDINGS: Breast parenchyma is predominantly fat replaced. There is a minimal pattern of background parenchymal enhancement. There is no evidence of axillary lymphadenopathy on either side. No significant breast cystic changes seen. No suspicious morphologic abnormality is seen on high-resolution pre or postcontrast images in either breast. Dynamically acquired sequential postcontrast images show no suspicious focus of enhancement and washout in either breast to suggest malignancy. Normal vascular structures are seen. IMPRESSION: BI-RADS category 1-bilateral breast MRI findings. <Electronically signed by Marek Fan > 06/04/20 [id number]
== END ==
LOC: M RAD 10:37
PROVIDERS: ATTEND Nurse Practitioner Women's Health
DX: Z80.3 Family history of malignant neoplasm of breast (principal); R92.2 Inconclusive mammogram; Z91.89 Other specified personal risk factors, not elsewhere classified
CPT/HCPCS: A9576; C8908

== ENCOUNTER → 2020-06-13 | Outpatient (CLI) | payer MEDICARE, MEDICAID ==
[~2020-06-13] MED LIST changes: -PROHANCE 279.3MG/ML 15ML VIAL As Ordered ONE; -PROHANCE 279.3MG/ML 5ML VIAL As Ordered ONE
== END ==
LOC: M LABSMTC 08:28
PROVIDERS: ATTEND Anesthesiology
DX: Z01.812 Encounter for preprocedural laboratory examination (principal); Z20.822 Contact with and (suspected) exposure to COVID-19

== ENCOUNTER 2020-06-18 06:46 | Day surgery (SDC) | payer MEDICARE, MEDICAID ==
[~2020-06-18] VITALS: Ht 160 cm; Wt 103.3 kg
--- OUTSIDE RECORDS SUMMARY | 2020-06-18 06:50 | CCD ---
Author Author [facility] Organization [facility] Address Unknown Phone Unavailable Care Team Providers Care Employee Benefits Manager Name Role Phone Agustina Rao Unavailable PROBLEMS Type Condition ICD9-CM Code LOC92-IK Code Onset Dates Condition S tatus SNOMED Code Notes Problem Chronic tension-type headache, not intractable G44 .229 Active 050001830 Problem Migraine, unspecified, not intractable, without status migrainosus G43.909 Active 44119742 Problem Morbid (severe) obesity due to excess calories E66 .01 Active 860152536 Problem Vitamin D deficiency E55.9 Active 71402205 Problem Generalized anxiety disorder F41.1 Active 218 77878 Problem Mixed hyperlipidemia E78.2 Active 570254630 Problem Other specified intestinal malabsorption K90.89 Active 78346353 Problem B12 deficiency anemia D51.9 Active 63540251 Problem Gastroesophageal reflux disease without esophagitis K21.9 Active 447874145 Problem Iron deficiency anemia, unspecified iron deficiency an emia type D50.9 Active 55717886 Problem Seasonal allergic rhinitis, unspecified trigger J3 0.2 Active 184057446 Problem BMI 38.0-38.9,adult Z68.38 Active 365089761 ALLERGIES Allergen (clinical drug ingredient) Drug/Non Drug Allergy do cumented on EMR Reaction Allergy Type Onset Date Status verapamil Verapamil HCl([facility] Code:[address]-48) fatigue Drug Ramy rgy Active ENCOUNTERS from 1975 to 2020-05-23 Encounter Location Date Provider Diagnosis [facility] [address] [place] [id number] Apr, Agustina Jalen IMMUNIZATIONS Vaccine Route Administration Date Status Pneumococcal Adult 0.5mL (Pneumovax 23) IM Intramuscular May 30, 2010 Administered TDAP 0.5mL (Boostrix) IM Intramuscular May 30, 2010 Administe red Influenza (6mo & up) Fluzone IM Intramuscular Feb 22, 2017 Ad ministered Influenza (6mo & up) Fluzone IM Intramuscular Feb 04, 2014 Ad ministered Influenza (6mo & up) Fluzone IM Intramuscular Feb 11, 2013 Ad ministered Influenza (6mo & up) Fluzone IM Intramuscular Apr 01, 2012 Ad ministered Influenza (6mo & up) Fluzone IM Intramuscular Mar 29, 2010 Ad ministered SOCIAL HISTORY Tobacco Use: Social History Observation Description Date Details (start date - stop date) Never Smoker Sex Assigned At : Social History Observation Description Sex Assigned At Unknown Education: Question Answer Notes Level of Education: Not Finished College Audit Question Answer Notes Total Score: 0 Interpretation: Alcohol Education Language: Question Answer Notes Languages spoken: Georgian Samaritan: Question Answer Notes [employer]itan 33 None Sexual Hx: Question Answer Notes Had sex in the last 12 months (vaginal, oral, or anal)? No LMP: IUD Have you ever had an STD? No Drug and Alcohol Question Answer Notes Total Score: 0 Interpretation: No problems reported Alcohol Screening: Question Answer Notes Did you have a drink containing alcohol in the past year? No Points 0 Interpretation Negative BMI Care Goal Follow-Up Question Answer Notes Above Normal BMI Follow-Up Dietary needs education, Weight m onitoring Tobacco Use: Question Answer Notes Are you a: never smoker never smoker REASON FOR REFERRAL No Information VITAL SIGNS No information MEDICATIONS Medication SIG (Take, Route, Frequency, Duration) Notes Start Da te End Date Status Vitamin D-3 1000 UNIT 1 capsule Orally Once a day Not-Taking Mirena 20 MCG/24HR as directed Intrauterine Active Ferrous Sulfate 325 MG 1 cap Orally Daily with meal for 30 day(s) Not-Taking Excedrin Migraine 250-250-65 MG 2 tablets as needed Orally every 6 hr s Active Calcium + D OTC 1 tablet by mouth Twice a day Active Vitamin B-12 1000 MCG 1 tablet Orally once a day Active Cetirizine HCl 10 mg 1 tablet as needed Orally Once a day August, Active Ventolin HFA 108 (90 Base) MCG/ACT 2 puffs as needed Inhalation every 4 hrs Jan, Active Nasal Mist 0.9 % as directed intranasally four times daily August, Active Robaxin-750 750 MG 1 tablet Orally before bedtime as needed Active Multivitamins OTC 1 tablet by mouth Once a day Active Pepcid 20 MG 1 tablet at bedtime as needed Orally twice daily Active Effexor XR 75 MG 1 capsule with food Orally Once a day Active Zofran ODT 4 mg 1 tab(s) for nausea during h eadaches as needed Orally twice a day Active Prilosec 40 MG 1 capsule 30 minutes before morning meal Orally twic e a day Not-Taking Topamax 200 MG 1 tablet Orally Twice a day Active BusPIRone HCl 7.5 MG 1 tablet Orally once a day at bedtime Active Zonisamide 50 MG 1 capsule Orally Twice a day Not-Taking PROCEDURES No Information RESULTS No Results REASON FOR VISIT auth MEDICAL (GENERAL) HISTORY Type Description Date Medical History Morbid obesity; now s/p laurence reena bypass surgery; routine labs ordered 06/30/2019 Medical History Hypertriglceridemia Medical History Anxiety - [facility] Medical History IFG Medical History Migraine/tension headaches - Dr. Mortensen Medical History LGSIL on Pap smear Medical History Cervicalgia Medical History GERD - Dr. De La Torre Medical History VIVIEN prior to gastric bypass surgery Surgical History Cholecystectomy 02/21/2008 Surgical History Gastric bypass 2010 Surgical History colposcopyEzequiel 01/19/14 Surgical History EGD normal - Dr. De La Torre 04/2019 Surgical History Colonoscopy - poor prep, repeat in 1 yea r; Dr. De La Torre 04/2019 Surgical History EGD - Kristina-en-Y gastrojejuno stomal anastomosis with congestion, erythema, stenosis, ulceration 09/2019 Hospitalization History cholecystectomy 02/04 Hospitalization History gastric bypass 2010 Hospitalization History gallbladder attack 12/05 Goals Section No Information Health Concerns No Information MEDICAL EQUIPMENT No Information MENTAL STATUS No Information FUNCTIONAL STATUS No Information ASSESSMENTS No Information PLAN OF TREATMENT Next Appt Details Provider Name:Veronica Bone, 2020-06-30 08:15:00 AM, [address] [place] [address], [phone], Provider Name:Agustina Rao, 2020-11-04 10:00:00 AM, [address] [place] [address], [phone], Insurance Providers Payer Name Payer Address Payer Phone Insured Name Patient Relati onship to Insured Coverage Start Date Coverage End Date MEDICAID [employer] [address] [place] [address] [phone] JAIRO WALKER self MEDICARE Part A and B [address] [facility] [id number] JAIRO WALKER self
--- OUTSIDE RECORDS SUMMARY | 2020-06-18 06:50 | CCD ---
Author Author [facility] Organization [facility] Address Unknown Phone Unavailable Care Team Providers Care Paste Mixer Liquid Name Role Phone Lizama, T Wilfred PA Unavailable Unavailable Lizama, T Wilfred PA Unavailable Unavailable Lizama, T Wilfred PA Unavailable Unavailable Lizama, T Wilfred PA Unavailable Unavailable Lizama, T Wilfred PA Unavailable Unavailable Lizama, T Wilfred PA Unavailable Unavailable Lizama, T Wilfred PA Unavailable Unavailable Lizama, T Wilfred PA Unavailable Unavailable Lizama, T Wilfred PA Unavailable Unavailable Lizama, T Wilfred PA Unavailable Unavailable Lizama, T Wilfred PA Unavailable Unavailable Lizama, T Wilfred PA Unavailable Unavailable Lizama, T Wilfred PA Unavailable Unavailable Lizama, T Wilfred PA Unavailable Unavailable Lizama, T Wilfred PA Unavailable Unavailable Lizama, T Wilfred PA Unavailable Unavailable Lizama, T Wilfred PA Unavailable Unavailable Lizama, T Wilfred PA Unavailable Unavailable Lizama, T Wilfred PA Unavailable Unavailable Lizama, T Wilfred PA Unavailable Unavailable Lizama, T Wilfred PA Unavailable Unavailable Lizama, T Wilfred PA Unavailable Unavailable Lizama, T Wilfred PA Unavailable Unavailable Lizama, T Wilfred PA Unavailable Unavailable Lizama, T Wilfred PA Unavailable Unavailable Lizama, T Wilfred PA Unavailable Unavailable Lizama, T Wilfred PA Unavailable Unavailable Lizama, T Wilfred PA Unavailable Unavailable Lizama, T Wilfred PA Unavailable Unavailable Lizama, T Wilfred PA Unavailable Unavailable Lizama, T Wilfred PA Unavailable Unavailable Lizama, T Wilfred PA Unavailable Unavailable Lizama, T Wilfred PA Unavailable Unavailable Lizama, T Wilfred PA Unavailable Unavailable Lizama, T Wilfred PA Unavailable Unavailable Lizama, T Wilfred PA Unavailable Unavailable Lizama, T Wilfred PA Unavailable Unavailable Lizama, T Wilfred PA Unavailable Unavailable Lizama, T Wilfred PA Unavailable Unavailable Lizama, T Wilfred PA Unavailable Unavailable Lizama, T Wilfred PA Unavailable Unavailable Lizama, T Wilfred PA Unavailable Unavailable Lizama, T Wilfred PA Unavailable Unavailable Charlebois, A Ashli RPA C Unavailable Unavailable Charlebois, A Ashli RPA C Unavailable Unavailable Charlebois, A Ashli RPA C Unavailable Unavailable Charlebois, A Ashli RPA C Unavailable Unavailable Charlebois, A Ashli RPA C Unavailable Unavailable Charlebois, A Ashli RPA C Unavailable Unavailable Charlebois, A Ashli RPA C Unavailable Unavailable Charlebois, A Ashli RPA C Unavailable Unavailable Charlebois, A Ashli RPA C Unavailable Unavailable Charlebois, A Ashli RPA C Unavailable Unavailable Charlebois, A Ashli RPA C Unavailable Unavailable Charlebois, A Ashli RPA C Unavailable Unavailable Charlebois, A Ashli RPA C Unavailable Unavailable Charlebois, A Ashli RPA C Unavailable Unavailable Charlebois, A Ashli RPA C Unavailable Unavailable Charlebois, A Ashli RPA C Unavailable Unavailable Charlebois, A Ashli RPA C Unavailable Unavailable Charlebois, A Ashli RPA C Unavailable Unavailable Charlebois, A Ashli RPA C Unavailable Unavailable Charlebois, A Ashli RPA C Unavailable Unavailable Charlebois, A Ashli RPA C Unavailable Unavailable Charlebois, A Ashli RPA C Unavailable Unavailable Charlebois, A Ashli RPA C Unavailable Unavailable Charlebois, A Ashli RPA C Unavailable Unavailable Charlebois, A Ashli RPA C Unavailable Unavailable Charlebois, A Ashli RPA C Unavailable Unavailable Charlebois, A Ashli RPA C Unavailable Unavailable Charlebois, A Ashli RPA C Unavailable Unavailable Charlebois, A Ashli RPA C Unavailable Unavailable Charlebois, A Ashli RPA C Unavailable Unavailable Charlebois, A Ashli RPA C Unavailable Unavailable Re-disclosure Warning The records that you are about to access may contain information from federally-assisted alcohol or drug abuse programs. If such information is present, then the following federally mandated warning applies: This information has been disclosed to you from records protected by federal confidentiality rules (42 CFR part 2). The federal rules prohibit you from making any further disclosure of this information unless further disclosure is expressly permitted by the written consent of the person to whom it pertains or as otherwise permitted by 42 CFR part 2. A general authorization for the release of medical or other information is NOT sufficient for this purpose. The Federal rules restrict any use of the information to criminally investigate or prosecute any alcohol or drug abuse patient.The records that you are about to access may contain highly sensitive health information, the redisclosure of which is protected by Article 27-F of the [facility] Public Health law. If you continue you may have access to information: Regarding HIV / AIDS; Provided by facilities licensed or operated by the [facility] Office of Mental Health; or Provided by the [facility] Office for People With Developmental Disabilities. If such information is present, then the following [facility] mandated warning applies: This information has been disclosed to you from confidential records which are protected by state law. State law prohibits you from making any further disclosure of this information without the specific written consent of the person to whom it pertains, or as otherwise permitted by law. Any unauthorized further disclosure in violation of state law may result in a fine or shelter sentence or both. A general authorization for the release of medical or other information is NOT sufficient authorization for further disc losure. Allergies and Adverse Reactions Type Description Substance Reaction Status Data Source(s ) Drug allergy Verapamil HCl Verapamil fatigue Active eCW1 ([facility]) Family History Family Member Name Family Member Gender Family Member Status Date o f Status Description Data Source(s) Unknown Male Problem MEDENT ([facility]) Unknown Unknown Problem [facility] ([facility]) Unknown Unknown Problem [facility] Encounters Encounter Providers Location Date Indications Data Source(s ) [place] [address] [facility] [address] 05/31/2020 12:00:00 AM EST eCW1 ([facility]) Unknown [address] [facility] [place] [address] 05/31/2020 12:00:00 AM EST eCW1 ([facility]) Unknown [address] [facility] [place] [address] 05/10/2020 12:00:00 AM EST [facility] Outpatient Attender: Wilfred DIAS [facility] [place] 05/06/2020 09:20:00 AM EST MEDENT ([facility]) Unknown [address] [facility] [address] 03/15/2020 12:00:00 AM EST eCW1 ([facility]) Outpatient Attender: Wilfred DIAS [facility] [place] 01/27/2020 10:40:00 AM EDT MEDENT ([facility]) Outpatient Attender: Ashli Cuevas/Lewisberry/A ngel/Reindl 01/20/2020 10:00:00 AM EDT MEDENT (MONIKA Fuchs) [facility] [address] [facility] [address] 12/31/2019 12:00:00 AM EDT eCW1 ([facility]) ( GYNANN) [facility] Yearly [employer] Exam [address] [place] [id number] 11/04/2019 12:00:00 AM EDT eCW1 ([facility]) [facility] [address] [place] [address] 10/06/2019 12:00:00 AM EDT eCW1 ([facility]) Outpatient Attender: Ashli Cuevas/Lewisberry/A ngel/Reindl 09/23/2019 08:15:00 AM EDT MEDENT (MONIKA Fuchs) [facility] [place] [address] [facility] [address] 09/10/2019 12:00:00 AM EDT eCW1 ([facility]) [facility] [address] [place] [address] 08/07/2019 12:00:00 AM EDT eCW1 ([facility]) [facility] [place] [address] [facility] [address] 07/07/2019 12:00:00 AM EDT eCW1 ([facility]) [facility] [address] [facility] [address] 06/30/2019 12:00:00 AM EST eCW1 ([facility]) [address] [address] 05/28/2019 12:00:00 AM EST eCW1 ([facility]) [address] [address] 05/23/2019 12:00:00 AM EST eCW1 ([facility]) [address] [place] [address] 05/23/2019 12:00:00 AM EST eCW1 ([facility]) [address] [address] 05/22/2019 12:00:00 AM EST eCW1 ([facility]) [address] [address] 05/16/2019 12:00:00 AM EST eCW1 ([facility]) Medications Medication Brand Name Start Date Product Form Dose Route Admi nistrative Instructions Pharmacy Instructions Status Indications Reaction Description Data Source(s) Prednisone 20 MG Oral Tablet PredniSONE 20 MG PredniSONE 20 MG 05/31/2020 12:00:00 AM EST 1.0 {tablet} active Pr edniSONE 20 MG eCW1 ([facility]) Prednisone 20 MG Oral Tablet PredniSONE 20 MG PredniSONE 20 MG 05/31/2020 12:00:00 AM EST 1.0 {tablet} active Pr edniSONE 20 MG eCW1 ([facility]) Bisacodyl 5 MG Delayed Release Oral Tablet [Dulcolax] Dulcol ax 05/21/2020 12:00:00 AM EST ORAL active M EDENT ([facility], ) POLYETHYLENE GLYCOL 3350 142 MG/ML Oral Solution [Miralax] M iralax 05/21/2020 12:00:00 AM EST active M EDENT ([facility], ) topiramate 100 MG Oral Tablet [Topamax] Topamax 01/27/2020 12:00:0 0 AM EDT ORAL active MEDENT ([facility]) Aimovig Aimovig 01/27/2020 12:00:00 AM EDT active MEDENT ([facility]) rizatriptan 10 MG Disintegrating Oral Tablet Rizatriptan Torito zoate 01/27/2020 12:00:00 AM EDT active M EDENT ([facility]) topiramate 25 MG Oral Tablet [Topamax] Topamax 01/27/2020 12:00:00 AM EDT ORAL completed MEDENT ([facility]) Sucralfate 1000 MG Oral Tablet Sucralfate 10/28/2019 12:00:00 AM EDT ORAL active MEDENT ([facility], ) POLYETHYLENE GLYCOL 3350 142 MG/ML Oral Solution [Miralax] M iralax 09/23/2019 12:00:00 AM EDT ORAL active M EDENT ([facility]) Famotidine 20 MG Oral Tablet Famotidine 05/13/2019 12:00:00 AM EST ORAL active MEDENT ([facility]) Omeprazole 40 MG Delayed Release Oral Capsule Omeprazole 04/09/2019 12:00:00 AM EST ORAL completed MEDENT ([facility]) Insurance Providers Payer name Policy type / Coverage type Policy ID Covered alliance party ID Covered alliance party's relationship to tee Policy Tee Plan Information EMEDNY [id number] SP [id number] MEDICARE [id number] SP [id number] SELF PAY ONLY [id number] SP [id number] MEDICARE [id number] SP [id number] MEDICAID [id number] SP [id number] [facility]-Medicare Part B [id number] [facility]-Medicaid [id number] ANSI-Medicare Part B [id number] ANSI-Medicaid [id number] ANSI-Medicare Part B [id number] ANSI-Medicaid [id number] ANSI-Medicaid [id number] ANSI-Medicare Part B [id number] ANSI-Medicare Part B [id number] ANSI-Medicaid [id number] ANSI-Medicare Part B [id number] ANSI-Medicaid [id number] ANSI-Medicaid [id number] ANSI-Medicare Part B [id number] ANSI-Medicaid [id number] ANSI-Medicare Part B [id number] ANSI-Medicaid [id number] ANSI-Medicare Part B [id number] ANSI-Medicare Part B [id number] ANSI-Medicaid [id number] ANSI-Medicaid [id number] ANSI-Medicare Part B [id number] ANSI-Medicare Part B [id number] ANSI-Medicaid [id number] ANSI-Medicare Part B [id number] ANSI-Medicaid [id number] MEDICARE [id number] ANSI-Medicare Part B [id number] ANSI-Medicaid [id number] ANSI-Medicaid [id number] ANSI-Medicare Part B [id number] ANSI-Medicare Part B [id number] ANSI-Medicaid [id number] MEDICAID M [id number] MEDICARE C [id number] S [id number] A MEDICARE [id number] SP [id number] [place] Medigap Part B [id number] Self [id number] Medicare [facility] Medicare Primary [id number] Self [id number] [place]ig[place] Part B [id number] Self [id number] Medicare [facility] Medicare Primary [id number] Self [id number] Medicaid [place] Medicaid Self Medicare Natl Gov't Servi Medicare Primary Self [id number] A Problems, Conditions, and Diagnoses Code Display Name Description Problem Type Effective Dates Data Source(s) 393529372 H/O: depression H/O: depression Problem 01/27/2020 12:0 0:00 AM EDT MEDENT ([facility]) [id number] Anxiety Anxiety Problem 01/27/2020 12:00:00 AM ED T MEDENT ([facility]) [id number] Gastroesophageal reflux disease Gastroesophageal reflux disease Problem 01/27/2020 12:00:00 AM EDT MEDENT ([facility]) 51175803 Headache Headache Problem 01/27/2020 12:00:00 AM ED T MEDENT ([facility]) K90.89 [id number] Other specified intestinal malabsorption Problem 06/30/2019 12:00:00 AM EST eCW1 ([facility]) K90.89 [id number] Other specified intestinal malabsorption Problem 06/30/2019 12:00:00 AM EST eCW1 ([facility]) Surgeries/Procedures Procedure Description Date Indications Data Source(s) Endoscopy Upper GI Dilate Gastric Outlet For Obstruction 03/09/2020 12:00:00 AM EST MEDENT ([facility]) Endoscopy Upper GI Biopsy 10/23/2019 12:00:00 AM EDT MEDENT ([facility], ) Office Visit, Est Pt., Level 4 PC 06/30/2019 12:00:00 AM EST eCW1 ([facility]) Office Visit, Est Pt., Level 2 FC 06/30/2019 12:00:00 AM EST eCW1 ([facility]) Endoscopy Upper GI Biopsy 05/13/2019 12:00:00 AM EST MEDENT ([facility], ) Colonoscopy Flexible Proximal To Splenic Flexure W/Biopsy Si ngle/ 05/13/2019 12:00:00 AM EST MEDENT ([facility] ) Results ID Date Data Source [id number] 06/13/2020 09:30:00 AM EST [place] Name Value Range Interpretation Code Description Data Margoth rce(s) Supporting Document(s) SARS coronavirus 2 RNA Not Detected [place] This lab was ordered by [facility] and reported by [facility]. ID Date Data Source PLZ CHEST 2 VIEW 05/31/2020 12:00:00 AM EST eCW1 ([facility]) Name Value Range Interpretation Code Description Data Margoth rce(s) Supporting Document(s) PLZ CHEST 2 VIEW eCW1 ([facility]) ID Date Data Source [id number] 05/25/2020 02:00:00 PM EST [place] Name Value Range Interpretation Code Description Data Margoth rce(s) Supporting Document(s) SARS coronavirus 2 RNA Not Detected [place] This lab was ordered by [facility] and reported by [facility]. ID Date Data Source [id number] 04/06/2020 12:00:00 AM EST [place] Name Value Range Interpretation Code Description Data Margoth rce(s) Supporting Document(s) 2019-nCoV RNA XXX ABBY+probe-Imp [place] This lab was ordered by [facility] and reported by [employer] ID Date Data Source [id number] 03/09/2020 08:44:00 AM EST MEDENT ([facility], ) Name Value Range Interpretation Code Description Data Margoth rce(s) Supporting Document(s) Surgical pathology study Laboratory test result MEDENT ([facility], ) FINAL DIAGNOSIS Gastric biopsy: Gastric mucosa with significant pathology. No H.pylori is identified. 03/10/20201315 CLINICAL DIAGNOSIS Heartburn, gastrojejunal stenosis 03/09/20201401 GROSS DIAGNOSIS Received in formalin labeled "gastric biopsy R/O H. pylori" and consists of a fragment of tissue 0.1 x 0.1 x 0.1 cm. All in one. -OA 03/09/20201401 Signed NATALIA MORTENSEN MD 03/10/2020 1317 ID Date Data Source [id number] 03/04/2020 12:00:00 PM EST [facility] Name Value Range Interpretation Code Description Data Margoth rce(s) Supporting Document(s) SARS coronavirus 2 RNA [facility] This lab was ordered by [facility] and reported by [facility]. ID Date Data Source PAP REQUEST FOR SERVICE 11/06/2019 08:49:23 AM EDT eCW1 ([facility]) Name Value Range Interpretation Code Description Data Margoth rce(s) Supporting Document(s) Laboratory studies (set) PAP REQUEST FOR SERVICE eCW1 ([facility]) ID Date Data Source [id number] 10/23/2019 10:16:00 AM EDT [facility] ([facility], ) Name Value Range Interpretation Code Description Data Margoth rce(s) Supporting Document(s) Surgical pathology study Laboratory test result [facility] ([facility]) FINAL DIAGNOSIS Submitted as "anastomotic biopsy": Columnar mucosa with focal intestinal metaplasia, surface erosion,chronic inflammation and reparative/reactive changes. No premalignant dysplasia is seen. 10/24/2019 - 1330 CLINICAL DIAGNOSIS Heartburn 10/23/2019 - 132 GROSS DIAGNOSIS Received in formalin labeled "anastomotic biopsy" and consists of a fragment of tissue 0.1 x 0.1 x 0.1 cm. All in one. -OA 10/23/2019 - 1328 Signed NATALIA MORTENSEN MD 10/24/2019 1331 ID Date Data Source [id number] 10/20/2019 09:45:00 AM EDT [facility] Name Value Range Interpretation Code Description Data Margoth rce(s) Supporting Document(s) SARS CORONAVIRUS 2 RNA [facility] This lab was ordered by [facility] and reported by [facility]. ID Date Data Source [id number] 05/13/2019 02:11:00 PM EST MEDENT ([facility], ) Name Value Range Interpretation Code Description Data Margoth rce(s) Supporting Document(s) Surgical pathology study Laboratory test result [facility] ([facility]) FINAL DIAGNOSIS A - Small bowel biopsy: Small intestinal mucosa with normal villi, free of acute inflammation. B - Gastric biopsy: Gastric mucosa free of significant acute or chronic inflammation. C - Descending colon, biopsy: Colonic mucosa with melanosis coli and focal neutrophils with surface erosions. D - Ascending colon polyp, polypectomy: Adenomatous polyp/tubular adenoma. 05/15/2019 - 1130 CLINICAL DIAGNOSIS Iron deficiency anemia and heartburn 05/14/2019 - 1309 GROSS DIAGNOSIS A - Received in formalin labeled "biopsy small bowel, R/O celiac" is a 0.3 x 0.3 x 0.2 cm aggregate of mucosal fragments. All in one. B - Received in formalin labeled "gastric biopsy, R/O H. pylori" is a 0.4 x 0.2 x 0.2 cm aggregate of two muco jed fragments. All in one. C - Received in formalin labeled "biopsy descending colon" is a 0.5 x 0.3 x 0.3 cm aggregate of dark amin mucos al fragments. All in one. D - Received in formalin labeled "biopsy ascending colon polyp" is a 0.4 x 0.2 x 0.2 cm aggregate of mucosal fragments. All in one. - 05/14/2019 - 1309 Signed Balwinder Leija M.D. 05/15/2019 1229 Procedure Social History Code Duration Value Status Description Data Source(s ) Smoking 05/31/2020 12:00:00 AM EST Never Smoker completed Never S moker eCW1 ([facility]) Smoking 05/31/2020 12:00:00 AM EST Never Smoker completed Never S moker eCW1 ([facility]) Smoking 03/14/2020 12:00:00 AM EST Never Smoker completed Never S moker eCW1 ([facility]) Smoking 03/14/2020 12:00:00 AM EST Never Smoker completed Never S moker eCW1 ([facility]) Smoking 11/04/2019 12:00:00 AM EDT Never Smoker completed Never S moker eCW1 ([facility]) Vital Signs ID Date Data Source UNK Name Value Range Interpretation Code Description Data Source(s) Diastolic blood pressure 78 mm[Hg] 78 mm[Hg] eCW1 ([facility]) Systolic blood pressure 114 mm[Hg] 114 mm[Hg] e CW1 ([facility]) Body temperature 97.3 [degF] 97.3 [degF] eCW1 ( [facility]) Respiratory rate 18 /min 18 /min eCW1 ([facility]) Heart rate 111 /min 111 /min eCW1 ([facility]) Body mass index (BMI) [Ratio] 40.03 kg/m2 40.03 kg/m2 eCW1 ([facility]) Body height 63 [in_i] 63 [in_i] eCW1 ([facility]) Body weight 226 [lb_av] 226 [lb_av] eCW1 ([facility]) Body surface area Derived from formula 2.[address] [facility] ([facility], ) Body weight 101.[address] [facility] ([facility], ) [employer] body weight 115 [lb_av] 115 [lb_av] MEDEN T ([facility], ) Body mass index (BMI) [Ratio] 39.5 kg/m2 39.5 k g/m2 [facility] ([facility], ) Body weight 223.00 [lb_av] 223.00 [lb_av] MEDEN T ([facility], ) Body height 63 [in_i] 63 [in_i] [facility] ([facility], ) 5'3" Diastolic blood pressure 82 mm[Hg] 82 mm[Hg] [facility] ([facility], ) Systolic blood pressure 112 mm[Hg] 112 mm[Hg] [facility], ) Respiratory rate 16 /min 16 /min [facility] ( [facility] Heart rate 65 /min 65 /min [facility] ([facility]) Diastolic blood pressure 84 mm[Hg] 84 mm[Hg] [facility] ([facility]) Systolic blood pressure 132 mm[Hg] 132 mm[Hg] [facility] Body mass index (BMI) [Ratio] 37.9 kg/m2 37.9 k g/m2 [facility] Body weight 214.00 [lb_av] 214.00 [lb_av] MEDEN T ([facility]) Body height 63 [in_i] 63 [in_i] MED[facility] 5'3" Body surface area Derived from formula 2.[address] [facility] ([facility]) Body weight 97.[address] [facility] ([facility]) [employer] body weight 115 [lb_av] 115 [lb_av] MEDEN T ([facility]) Body mass index (BMI) [Ratio] 38.3 kg/m2 38.3 k g/m2 [facility] ([facility]) Body weight 216.00 [lb_av] 216.00 [lb_av] [facility] ([facility]) Body height 63 [in_i] 63 [in_i] [facility] ([facility]) 5'3" Diastolic blood pressure 84 mm[Hg] 84 mm[Hg] [facility]) Systolic blood pressure 108 mm[Hg] 108 mm[Hg] M EDENT ([facility]) Diastolic blood pressure 80 mm[Hg] 80 mm[Hg] eCW1 ([facility]) Systolic blood pressure 134 mm[Hg] 134 mm[Hg] e CW1 ([facility]) Body mass index (BMI) [Ratio] 37.90 kg/m2 37.90 kg/m2 W1 ([facility]) Body height 63 [in_i] 63 [in_i] eCW1 ([facility]) Body weight 214 [lb_av] 214 [lb_av] eCW1 ([facility]) Body weight 93.442 kg 93.442 kg [facility] ([facility]) Body mass index (BMI) [Ratio] 36.5 kg/m2 36.5 k g/m2 [facility] ([facility]) Body weight 206.00 [lb_av] 206.00 [lb_av] MEDEN T ([facility]) Body height 63 [in_i] 63 [in_i] MEDENT ([facility]) 5'3" Diastolic blood pressure 88 mm[Hg] 88 mm[Hg] MEDUNRULY ([facility], ) Systolic blood pressure 118 mm[Hg] 118 mm[Hg] M EDENT ([facility], ) Diastolic blood pressure 66 mm[Hg] 66 mm[Hg] eCW1 ([facility]) Systolic blood pressure 110 mm[Hg] 110 mm[Hg] e CW1 ([facility]) Body temperature 97.5 [degF] 97.5 [degF] eCW1 ( [facility]) Respiratory rate 18 /min 18 /min eCW1 ([facility]) Heart rate 100 /min 100 /min eCW1 ([facility]) Body mass index (BMI) [Ratio] 37.90 kg/m2 37.90 kg/m2 eCW1 ([facility]) Body height 63 [in_us] 63 [in_us] eCW1 ([facility]) Body weight Measured 214 [lb_av] 214 [lb_av] eC W1 ([facility]) Patient Treatment Plan of Care Planned Activity Planned Date Details Description Data Source (s) Prednisone 20 MG Oral Tablet 05/31/2020 12:00:00 AM EST eCW1 ([facility]) Prednisone 20 MG Oral Tablet 05/31/2020 12:00:00 AM EST eCW1 ([facility])
--- OUTSIDE RECORDS SUMMARY | 2020-06-18 06:50 | CCD | Continuity of Care Document ---
Author Author Silva GARCIA PA-C Organization Unknown Address [address] [place] [address] Phone [phone] Care Team Providers Care Lead Auditor Name Role Phone Veronica Bone M.D. AUTM [phone] Problems Active Problems Provider Date Headache Wilfred Garcia PA-C Onset: 01/27/2020 Gastroesophageal reflux disease Wilfred Garcia PA-C Onset: 01/27/2020 Anxiety Wilfred Garcia PA-C Onset: 01/27/2020 H/O: depression Wilfred Garcia PA-C Onset: 01/27/2020 Social History Type Date Description Comments Sex Unknown ETOH Use Denies alcohol use Recreational Drug Use Denies Drug Use Tobacco Use Start: Unknown Patient has never smoked (pipe, cigarette, cigar) Allergies, Adverse Reactions, Alerts Active Allergies Reaction Severity Comments Date Protonix 01/27/2020 Verapamil 01/27/2020 Prilosec 01/27/2020 Medications Active Medications SIG Qnty Indications Ordering Provide r Date Rizatriptan Benzoate 10mg Tablets Dispers 1 tab AT onset of migraine. may repeat in 2 hours prn. mdd=2, mwd=3 9tabs Wilfred Garcia PA-C 01/27/2020 Aimovig 70mg/ml Solution Auto-Inje ct use once per month 1ml Wilfred Garcia PA-C 01/27/2020 Topamax 100mg Tablets 1 tab by mouth AT night 30tabs Wilfred Garcia PA-C 01/27/2020 Sucralfate 1gm Tablets Take One Tablet By Mouth 30 Minutes prior To meals And AT Bedtime U nknown Famotidine 20mg Tablets Take One Tablet By Mouth Every Morning And Take One Tablet By Mouth AT Bedtime Unknown Buspirone HCL 15mg Tablets Take One Tablet By Mouth AT Bedtime Unknown Robaxin-750 750mg Tablets 1 tab by mouth two times a day need Unknown 00 Effexor XR 75mg Caps ER 24HR 1 by mouth every day Unknown Excedrin Extra Strength [id number] Tablets needed for headaches Unknown Miralax 17gm Packet needed Unknown Multi Vitamin Tablets 1 by mouth every day Unknown Calcium + D [id number] Tablets 1 tab daily Unknown Zonisamide 50mg Capsules bid Unknown History Medications Topamax 25mg Tablets 3 tabs by mouth AT night for 1 week, decrease by 25 mg per week until just 100 mg daily. take with 100 mg tab 90tabs Wilfred Garcia PA-C 01/27/2020 - 05/06/2020 Immunizations Description No Information Available Vital Signs Date Vital Result Comment 01/27/2020 10:48am Height 63 inches 5'3" Weight 214.00 lb BMI (Body Mass Index) 37.9 kg/m2 BP Systolic 132 mmHg BP Diastolic 84 mmHg Heart Rate 65 /min Respiratory Rate 16 /min Results Description No Information Available Procedures Description No Information Available Medical Devices Description No Information Available Encounters Type Date Location Provider Dx Diagnosis Office Visit 05/06/2020 10:20a [facility] Neurology Wilfred Garcia PA-C G43 .009 Migraine w/o aura, not intractable, w/o status migrainosus Office Visit 01/27/2020 10:40a [facility] Neurology Wilfred Garcia PA-C G43 .019 Migraine w/o aura, intractable, without status migrainosus Assessments Date Code Description Provider 05/06/2020 G43.009 Migraine without aur a, not intractable, without status migrainosus Wilfred Garcia PA-C 01/27/2020 G43.019 Migraine without aur a, intractable, without status migrainosus Wilfred Garcia PA-C Plan of Treatment Future Appointment(s):* 11/03/2020 12:40 pm - Wilfred Garcia PA-C at [facility] Neurology 05/06/2020 - Wilfred Garcia PA-C* G43.009 Migraine without aura, not intractable, without status migrainosus Functional Status Description No Information Available Mental Status Description No Information Available Referrals Description No Information Available
--- OUTSIDE RECORDS SUMMARY | 2020-06-18 06:50 | CCD ---
Author Author [facility] Organization [facility] Address Unknown Phone Unavailable Care Team Providers Care Drying Equipment Operator Name Role Phone Sarah Barros Unavailable PROBLEMS Type Condition ICD9-CM Code [id number] Code Onset Dates Condition S tatus W/U Status Risk SNOMED Code Notes Problem Chronic tension-type headache, not intractable G44 .229 Active confirmed 246969649 Problem Migraine, unspecified, not intractable, without status migrainosus G43.909 Active confirmed 37799572 Problem Morbid (severe) obesity due to excess calories E66 .01 Active confirmed 946357580 Problem Vitamin D deficiency E55.9 Active confirmed 76336604 Problem Generalized anxiety disorder F41.1 Active confirme d 94587062 Problem Mixed hyperlipidemia E78.2 Active confirmed 714491786 Problem Other specified intestinal malabsorption K90.89 Active confirmed 00677410 Problem B12 deficiency anemia D51.9 Active confirmed 63610138 Problem Gastroesophageal reflux disease without esophagitis K21.9 Active confirmed 819255547 Problem Iron deficiency anemia, unspecified iron deficiency an emia type D50.9 Active confirmed 08384958 Problem Seasonal allergic rhinitis, unspecified trigger J3 0.2 Active confirmed 974717384 Problem BMI 38.0-38.9,adult Z68.38 Active confirmed 843879353 ALLERGIES Allergen (clinical drug ingredient) Drug/Non Drug Allergy do cumented on EMR Reaction Allergy Type Onset Date Status verapamil Verapamil HCl([facility] Code:[address]-69) fatigue Drug Ramy rgy Active ENCOUNTERS from 1977 to 2020-06-04 Encounter Location Date Provider Diagnosis [facility] [place] [address] May, Sarah Barros Bronchitis J40 IMMUNIZATIONS Vaccine Route Administration Date Status Pneumococcal [...] Education Language: Question Answer Notes Languages spoken: Ugandan Mandaeism: Question Answer Notes Mandaeism 33 None Sexual Hx: Question Answer Notes [...] REASON FOR REFERRAL No Information VITAL SIGNS Weight 226 lbs May, Height 63 in May, BMI 40.03 kg/m2 May, Heart Rate 111 /min May, Respiratory Rate 18 /min May, Temperature 97.3 degrees Fahrenheit May, Oximetry 100 May, Blood pressure systolic 114 mm Hg May, Blood pressure diastolic 78 mm Hg May, MEDICATIONS Medication SIG (Take, Route, Frequency, Duration) Notes Start Da te End Date Status Ferrous Sulfate 325 MG 1 cap Orally Daily with meal for 30 day(s) Not-Taking Zofran ODT 4 mg 1 tab(s) for nausea during h eadaches as needed Orally twice a day Active Vitamin D-3 1000 UNIT 1 capsule Orally Once a day Not-Taking PredniSONE 20 MG 1 tablet Orally bid for 5 days May, Active Calcium + D OTC 1 tablet by mouth Twice a day Active Mirena 20 MCG/24HR as directed Intrauterine Active Multivitamins OTC 1 tablet by mouth Once a day Active Vitamin B-12 1000 MCG 1 tablet Orally once a day Active Pepcid 20 MG 1 tablet at bedtime as needed Orally twice daily Active Sucralfate Active Topamax 200 MG 1 tablet Orally Twice a day Active Ventolin HFA 108 (90 Base) MCG/ACT 2 puffs as needed Inhalation every 4 hrs Jan, Active Zonisamide 50 MG 1 capsule Orally Twice a day Not-Taking Robaxin-750 750 MG 1 tablet Orally before bedtime as needed Active Prilosec 40 MG 1 capsule 30 minutes before morning meal Orally twic e a day Not-Taking Nasal Mist 0.9 % as directed intranasally four times daily August, Active Excedrin Migraine 250-250-65 MG 2 tablets as needed Orally every 6 hr s Active BusPIRone HCl 7.5 MG 1 tablet Orally once a day at bedtime Active Effexor XR 75 MG 1 capsule with food Orally Once a day Active Cetirizine HCl 10 mg 1 tablet as needed Orally Once a day August, Active PROCEDURES No Information RESULTS Component Value Reference Range PLZ CHEST 2 VIEW Reviewed date:05/31/2020 16:55:51 Interpretation: Performing Lab:[facility], ,[place] [address] PLZ CHEST 2 VIEW Reviewed date:06/03/2020 10:33:16 Interpretation: Performing Lab:[facility],[address] ,[place] [address] REASON FOR VISIT Cough, sinus MEDICAL (GENERAL) HISTORY Type Description Date Medical History Morbid obesity; now s/p laurence reena bypass surgery; routine labs ordered 06/30/2019 Medical History Hypertriglceridemia Medical History Anxiety - [facility] Medical History IFG Medical History Migraine/tension [...] anastomosis with congestion, erythema, stenosis, ulceration 09/2019 Surgical History EGD - Kristina-toño Y GJ anastomo sis healthy; biopsies pending; Dr. Gagnon 02/2020 Hospitalization History cholecystectomy 02/04 Hospitalization History gastric bypass 2010 Hospitalization History gallbladder attack 12/05 Goals Section No Information Health Concerns No Information MEDICAL EQUIPMENT No Information MENTAL STATUS No Information FUNCTIONAL STATUS No Information ASSESSMENTS Encounter Date Diagnosis Assessment Notes Treatment Notes Treatm ent Clinical Notes May, Bronchitis (ICD-10 - J40) Called pt with negative CXR results. Will start a short course of Prednisone. RTO in 3-5 days if sxs worsen/persist. Pt agrees with plan PLAN OF TREATMENT Medication Medication Name Sig Start Date Stop Date PredniSONE 20 MG 1 tablet Orally bid for 5 days May, Treatment Notes Assessment Notes Clinical Notes Bronchitis Called pt with negative CXR results. Will start a short course of Prednisone. RTO in 3-5 days if sxs worsen/persist. Pt agrees with plan Next Appt Details Provider Name:Veronica Bone, 2020-06-30 08:15:00 AM, [address] [place], [address], Provider Name:Agustina Rao, 2020-11-04 10:00:00 AM, [address] [place], [address], Insurance Providers Payer Name Payer Address Payer Phone Insured Name Patient Relati onship to Insured Coverage Start Date Coverage End Date MEDICAID [employer] [address] [facility] [id number] JAIRO WALKER self MEDICARE Part A and B [address] [facility] [phone] JAIRO WALKER self
--- OUTSIDE RECORDS SUMMARY | 2020-06-18 06:50 | CCD | Continuity of Care Document ---
Author Author [facility] Organization Unknown Address [address], [address] [place] [address] Phone [phone] Care Team Providers Care Food Service Agent Name Role Phone Agustina Rao AUTM [phone] Ana Little AUTM [phone] Agustina Pink AUTM [phone] Veronica Bone M.D. AUTM [phone] Problems Description No Active Problems Social History Type Date Description Comments Sex Unknown ETOH Use Denies alcohol use Tobacco Use Start: Unknown Non Smoker Recreational Drug Use Denies Drug Use Exercise Type/Frequency Regular Vigorous Exercis e Allergies, Adverse Reactions, Alerts Active Allergies Reaction Severity Comments Date Protonix Nausea/Vomiting 04/09/2019 Omeprazole Nausea/vomiting 09/23/2019 Inactive Allergies NKDA 02/05/2013 Medications Active Medications SIG Qnty Indications Ordering Provide r Date Dulcolax 5mg Tablets DR take 4 tabs by mouth prior to procedure per instructions. 4tabs Z12.11 Raman De La Torre MD 05/21/2020 Miralax 17GM/Scoop Powder use as instructed by doctor for bowel prep 510gm Z12.11 Raman De La Torre MD 05/21/2020 Sucralfate 1gm Tablets take 1 tab by mouth 30 minutes prior to each meal and at bedtime. 120tabs Da shankar De La Torre MD 10/28/2019 Miralax 17GM/Scoop Powder Take 17 grams by mouth once daily. 510gm K59.04 Raman De La Torre MD 09/23/2019 Famotidine 20mg Tablets take 1 tab by mouth twice a day ( laboratory animal facility supervisor on empty stomach and at bedtime). 60tabs Raman De La Torre MD 05/13/2019 Topamax 100mg Tablets 1 tab p o bid Unknown Zyrtec Allergy 10mg Tablets 1 by mouth every day Unknown Buspirone HCL 7.5mg Tablets 1 by mouth daily at hs Unknown Multivitamin Adult Tablets 1 by mouth every day Unknown Effexor XR 75mg Caps ER 24HR 1 by mouth every day Unknown Immunizations Description No Information Available Vital Signs Date Vital Result Comment 05/21/2020 8:36am BP Systolic 112 mmHg BP Diastolic 82 mmHg Height 63 inches 5'3" Weight 223.00 lb BMI (Body Mass Index) 39.5 kg/m2 [place] Body Weight 115 lb Weight 101.153 kg BSA (Body Surface Area) 2.03 m2 01/20/2020 10:32am BP Systolic 108 mmHg BP Diastolic 84 mmHg Height 63 inches 5'3" Weight 216.00 lb BMI (Body Mass Index) 38.3 kg/m2 [facility] Body Weight 115 lb Weight 97.978 kg BSA (Body Surface Area) 2.00 m2 Results Test Acquired Date Facility Test Result H/L Range Note Laboratory test finding 03/09/2020 [facility] [address] [place] [address] [phone] Pathology Request For Service (SEE NOTE) 1 1 FINAL DIAGNOSIS Gastric biopsy: Gastric mucosa with significant pathology. No H.pylori is identified. 03/10/2020 - 1316 CLINICAL DIAGNOSIS Heartburn, gastrojejunal stenosis 03/09/2020 - 140 GROSS DIAGNOSIS Received in formalin labeled "gastric biopsy R/O H. pylori" and consists of a fragment of tissue 0.1 x 0.1 x 0.1 cm. All in one. -OA 03/09/2020 - 1402 Signed NATALIA MORTENSEN MD 03/10/2020 1317 Procedures Date Code Description Status 03/09/2020 06760 Endoscopy Upper GI Dilate Gastri c Outlet For Obstruction Completed Medical Devices Description No Information Available Encounters Type Date Location Provider Dx Diagnosis Office Visit 01/20/2020 10:00a [facility] Lea Cheney, RPA-C K21.9 Gastro-esophageal reflux dis ease without esophagitis R10.13 Epigastric pain Z98.0 Intestinal bypass and anasto mosis status K59.04 Chronic idiopathic constipat ion Assessments Date Code Description Provider 05/21/2020 Z12.11 Encounter for screening for loni gnant neoplasm of colon Ashli Cheney, [facility] 05/21/2020 Z86.010 Personal history of colonic poly ps Ashli Cheney, [facility] 05/21/2020 K21.9 Gastro-esophageal reflux disease without esophagitis Ashli Cheney, [facility] 05/21/2020 K59.04 Chronic idiopathic constipation Ashli Cheney, [facility] 03/09/2020 Z98.0 Intestinal bypass and anastomosi s status Michael Gagnon M.D. 03/09/2020 K95.89 Other complications of other bar iatric procedure Michael Gagnon M.D. 01/20/2020 K21.9 Gastro-esophageal reflux disease without esophagitis Ashli Cheney, [facility] 01/20/2020 R10.13 Epigastric pain Ashli schroeder, [facility] 01/20/2020 Z98.0 Intestinal bypass and anastomosi s status Ashli Cheney [facility] 01/20/2020 K59.04 Chronic idiopathic constipation Ashli Cheney, [facility] Plan of Treatment 05/21/2020 - Ashli Bertrandleda [facility]* Z12.11 Encounter for screening for malignant neoplasm of colon * Z86.010 Personal history of colonic polyps * K21.9 Gastro-esophageal reflux disease without esophagitis * K59.04 Chronic idiopathic constipation * * New Medication:* Dulcolax 5 mg * Miralax 17 GM/Scoop * New Orders:* Colonoscopy, Ordered: 05/21/20 * Comments:* Will arrange for colonoscopy. Reviewed risks and benefits of the procedure, as well as other options, with the patient. Bowel prep procedure was discussed with patient, as well as risks and side effects associated with the bowel prep. Patient verbalized understanding of all of the above and is in agreement to proceed. Patient will seek medical attention for any acute changes. Will monitor. Functional Status Description No Information Available Mental Status Description No Information Available Referrals Description No Information Available
--- OUTSIDE RECORDS SUMMARY | 2020-06-18 06:50 | CCD ---
Author Author [facility] Organization [facility] Address Unknown Phone Unavailable Care Team Providers Care Nursing Home Assistant Administrator Name Role Phone Sarah Barros Unavailable PROBLEMS Type Condition ICD9-CM Code [id number] Code Onset Dates Condition S tatus W/U Status Risk SNOMED Code Notes Problem Chronic tension-type headache, not intractable G44 .229 Active confirmed 619663331 Problem Migraine, unspecified, not intractable, without status migrainosus G43.909 Active confirmed 07708560 Problem Morbid (severe) obesity due to excess calories E66 .01 Active confirmed 641584518 Problem Vitamin D deficiency E55.9 Active confirmed 36096403 Problem Generalized anxiety disorder F41.1 Active confirme d 89018227 Problem Mixed hyperlipidemia E78.2 Active confirmed 527440900 Problem Other specified intestinal malabsorption K90.89 Active confirmed 99214621 Problem B12 deficiency anemia D51.9 Active confirmed 60631670 Problem Gastroesophageal reflux disease without esophagitis K21.9 Active confirmed 911662913 Problem Iron deficiency anemia, unspecified iron deficiency an emia type D50.9 Active confirmed 44568152 Problem Seasonal allergic rhinitis, unspecified trigger J3 0.2 Active confirmed 017895792 Problem BMI 38.0-38.9,adult Z68.38 Active confirmed 641328056 ALLERGIES Allergen (clinical drug ingredient) Drug/Non Drug Allergy do cumented on EMR Reaction Allergy Type Onset Date Status verapamil Verapamil HCl([facility] Code:[address]-84) fatigue Drug Ramy rgy Active ENCOUNTERS from 1977 to 2020-05-31 Encounter Location Date Provider Diagnosis [facility] [address] [address] May, Sarah Barros IMMUNIZATIONS Vaccine Route Administration Date Status Pneumococcal [...] Education Language: Question Answer Notes Languages spoken: Greek Caodaism: Question Answer Notes Caodaism 33 None Sexual Hx: Question Answer Notes [...] 30 minutes before morning meal Orally twic a day Not-Taking Nasal Mist 0.9 % [...] day August, Active PROCEDURES No Information RESULTS No Results REASON FOR VISIT Cough, sinus MEDICAL (GENERAL) HISTORY Type Description Date Medical History Morbid obesity; now s/p laurence reena bypass surgery; routine labs ordered 06/30/2019 Medical History Hypertriglceridemia Medical History Anxiety - [facility] Medical History IFG Medical History Migraine/tension [...] Colonoscopy - poor prep, repeat in 1 jonna rPradip De La Torre 04/2019 Surgical History EGD [...] Information ASSESSMENTS No Information PLAN OF TREATMENT Medication Medication Name Sig Start Date Stop Date PredniSONE 20 MG 1 tablet Orally bid for 5 days May, Next Appt Details Provider Name:Veronica Bone, 2020-06-30 08:15:00 AM, [address] [place], [address], Provider Name:Agustina Rao, 2020-11-04 10:00:00 AM, [address] [place], [address], Insurance Providers Payer Name Payer Address Payer Phone Insured Name Patient Relati onship to Insured Coverage Start Date Coverage End Date MEDICAID [employer] [address] [facility] [id number] JAIRO WALKER self MEDICARE Part A and B [address] [facility] [phone] JAIRO WALKER self
[2020-06-18] MEDS ORDERED: NS 1,000 ML IV ONE (07:00)
[2020-06-18] MEDS ORDERED: propofoL 200 MG/20 ML VIAL As Ordered ONE ×3 (07:22→07:27)
[2020-06-18] MEDS ORDERED: LIDOCAINE 2% 100MG/5ML SDV (FOR ANES.) As Ordered ONE (07:22)
[2020-06-18] MEDS ORDERED: PHENYLephrine 500MCG 5ML (100MCG/ML) SYRINGE As Ordered ONE (07:48)
[2020-06-18] MEDS ORDERED: GLYCOPYRROLATE INJ 0.2 MG/ML 2 ML VIAL As Ordered ONE (07:52)
--- NOTE | 2020-06-18 08:10 | ROOR ---
Patient Name: Silva Andujar Procedure Date: 06/18/2020 7:30 AM Date of : 1975 Age: 45 Room: [facility] Gender: Female Note Status: Finalized Procedure: Colonoscopy Indications: Screening in patient at increased risk: Family history of 1st-degree relative with colorectal cancer Providers: Michael Gagnon MD Referring MD: Veronica Bone MD Requesting Provider: Medicines: Monitored Anesthesia Care Complications: No immediate complications. Procedure: Pre-Anesthesia Assessment: - Prior to the procedure, a History and Physical was performed, and patient medications and allergies were reviewed. The patient is competent. The risks and benefits of the procedure and the sedation options and risks were discussed with the patient. All questions were answered and informed consent was obtained. Patient identification and proposed procedure were verified by the physician, the nurse and the anesthesiologist in the procedure room. Mental Status Examination: alert and oriented. Airway Examination: normal oropharyngeal airway and neck mobility. Respiratory Examination: clear to auscultation. CV Examination: normal. Prophylactic Antibiotics: The patient does not require prophylactic antibiotics. Prior Anticoagulants: The patient has taken no previous anticoagulant or antiplatelet agents. ASA Grade Assessment: II - A patient with mild systemic disease. After reviewing the risks and benefits, the patient was deemed in satisfactory condition to undergo the procedure. The anesthesia plan was to use monitored anesthesia care (MAC). Immediately prior to administration of medications, the patient was re-assessed for adequacy to receive sedatives. The heart rate, respiratory rate, oxygen saturations, blood pressure, adequacy of pulmonary ventilation, and response to care were monitored throughout the procedure. The physical status of the patient was re-assessed after the procedure. The Colonoscope was introduced through the anus and advanced to the terminal ileum, with identification of the appendiceal orifice and IC valve. The colonoscopy was performed without difficulty. The patient tolerated the procedure well. The quality of the bowel preparation was good. The terminal ileum, ileocecal valve, appendiceal orifice, and rectum were photographed. Scope insertion time was 2 minutes. Scope withdrawal time was 8 minutes. The total duration of the procedure was 10 minutes. Findings: The perianal and digital rectal examinations were normal. The terminal ileum appeared normal. Two sessile polyps were found in the ascending colon. The polyps were 5 to 10 mm in size. These polyps were removed with a cold snare. Resection and retrieval were complete. Verification of patient identification for the specimen was done by the physician and nurse using the patient's name, date and medical record number. Estimated blood loss was minimal. Non-bleeding external and internal hemorrhoids were found during retroflexion. The hemorrhoids were medium-sized. Impression: - The examined portion of the ileum was normal. - Two 5 to 10 mm polyps in the ascending colon, removed with a cold snare. Resected and retrieved. - Non-bleeding external and internal hemorrhoids. Recommendation: - Patient has a contact number available for emergencies. The signs and symptoms of potential delayed complications were discussed with the patient. Return to normal activities tomorrow. Written discharge instructions were provided to the patient. - High fiber diet. - Continue present medications. - Use fiber, for example Citrucel, Fibercon, Konsyl or Metamucil. - Await pathology results. - Repeat colonoscopy in 3 - 5 years for surveillance based on pathology results. - Telephone GI clinic for pathology results in 2 weeks. - Return to primary care physician. Procedure Code(s): --- Professional --- 87934, Colonoscopy, flexible; with removal of tumor(s), polyp(s), or other lesion(s) by snare technique Diagnosis Code(s): --- Professional --- Z80.0, Family history of malignant neoplasm of digestive organs K64.8, Other hemorrhoids K63.5, Polyp of colon CPT copyright 2019 [employer]. All rights reserved. The codes documented in this report are preliminary and upon clay preparation supervisor review may be revised to meet current compliance requirements. Michael Gagnon MD Michael Gagnon MD 06/18/2020 8:10:26 AM Electronically signed by Michael Gagnon MD Number of Addenda: 0 Note Initiated On: 06/18/2020 7:30 AM Estimated Blood Loss: Estimated blood loss was minimal.
[2020-06-18 08:25] VITALS: BP 139/78
== END 2020-06-18 08:28 | disposition home or self-care (01) ==
LOC: M OPP 06:46
PROVIDERS: ATTEND Internal Medicine Gastroenterology
DX: Z12.11 Encounter for screening for malignant neoplasm of colon (principal); Z80.0 Family history of malignant neoplasm of digestive organs; Z86.010 Personal history of colon polyps; K63.5 Polyp of colon; K64.8 Other hemorrhoids; K21.9 Gastro-esophageal reflux disease without esophagitis; F41.0 Panic disorder [episodic paroxysmal anxiety]; F32.9 Major depressive disorder, single episode, unspecified; G43.909 Migraine, unspecified, not intractable, without status migrainosus; Z98.84 Bariatric surgery status; Z88.8 Allergy status to other drugs, medicaments and biological substances; Z79.899 Other long term (current) drug therapy; Z80.1 Family history of malignant neoplasm of trachea, bronchus and lung; Z80.3 Family history of malignant neoplasm of breast; Z80.6 Family history of leukemia; Z82.49 Family history of ischemic heart disease and other diseases of the circulatory system
CPT/HCPCS: 45385; 88305; J2370

== ENCOUNTER → 2020-06-30 | Outpatient (REF) | payer MEDICARE, MEDICAID ==
[~2020-06-30] MED LIST changes: +VERA80TA3 PO; -VERAP80TA PO
[2020-06-30 14:31] LABS: ALBUMIN 3.4 GM/DL (3.2-5.2); ALT/SGPT 13 U/L (12-78); BILIRUBIN,TOTAL 0.4 MG/DL (0.2-1.0); BLOOD UREA NITROGEN 11 MG/DL (7-18); CARBON DIOXIDE LEVEL 28 MEQ/L (21-32); CHLORIDE LEVEL 110 MEQ/L (98-107); CHOLESTEROL LEVEL 195 MG/DL (<200); CHOLESTEROL RISK RATIO 3.545 (<5); CREATININE FOR GFR 0.62 MG/DL (0.55-1.30); FERRITIN < 3 NG/ML (8-252); GLOMERULAR FILTRATION RATE > 60.0 (>58); GLUCOSE, FASTING 85 MG/DL (70-100); HDL CHOLESTEROL 55 MG/DL (>40); IRON (FE) 22 UG/DL (50-170); LDL CHOLESTEROL 125 MG/DL (<100); MAGNESIUM LEVEL 2.1 MG/DL (1.8-2.4); NON-HDL-C 140 MG/DL; PERCENT SATURATION 5.7 % (13.2-45.0); PHOSPHORUS LEVEL 2.8 MG/DL (2.5-4.9); POTASSIUM SERUM 4.2 MEQ/L (3.5-5.1); SODIUM LEVEL 140 MEQ/L (136-145); TOTAL IRON BINDING CAPACITY 387 UG/DL (250-450); TOTAL PROTEIN 6.5 GM/DL (6.4-8.2); TRIGLYCERIDES LEVEL 75 MG/DL (<150)
[2020-06-30 14:34] LABS: TOTAL 25(OH) VITAMIN D 18.1 NG/ML (30.0-100.0); VITAMIN B12 LEVEL 351 PG/ML (247-911)
[2020-06-30 14:36] LABS: BASO % 0.8 % (0.0-1.0); EOS # 0.1 10^3/uL (0.0-0.5); EOS % 1.5 % (0.0-3.0); HEMOGLOBIN 10.4 g/dl (12.0-15.5); LYMPH # 1.5 10^3/uL (1.5-5.0); LYMPH % 30.4 % (24.0-44.0); MEAN CORPUSCULAR HEMOGLOBIN 21.8 pg (27.0-33.0); MEAN CORPUSCULAR HGB CONC 28.9 g/dl (32.0-36.5); MEAN CORPUSCULAR VOLUME 75.6 fl (80.0-96.0); MONO # 0.4 10^3/uL (0.0-0.8); MONO % 8.5 % (2.0-8.0); NEUTROPHILS # 2.8 10^3/uL (1.5-8.5); NEUTROPHILS % 58.2 % (36.0-66.0); PLATELET COUNT, AUTOMATED 334 10^3/uL (150-450); RED BLOOD COUNT 4.76 10^6/uL (4.00-5.40); WHITE BLOOD COUNT 4.8 10^3/uL (4.0-10.0)
== END ==
LOC: M SFHCPLAZ 09:05
PROVIDERS: ATTEND Family Medicine
DX: K90.89 Other intestinal malabsorption (principal); D50.9 Iron deficiency anemia, unspecified; E78.2 Mixed hyperlipidemia; E55.9 Vitamin D deficiency, unspecified; D51.9 Vitamin B12 deficiency anemia, unspecified

== ENCOUNTER → 2020-07-09 | Outpatient (CLI) | payer MEDICARE, MEDICAID ==
[~2020-07-09] VITALS: Ht 160 cm; Wt 103.0 kg
[~2020-07-09] MED LIST changes: +IRON SUCROSE 225 MG in NS 225 ML IV ONE; +IRON SUCROSE 25 MG in NS 25 ML IV ONE
[2020-07-09 08:35] VITALS: BP 138/89
[2020-07-09 10:42] VITALS: BP 139/89
[2020-07-09 12:45] VITALS: BP 135/84
== END ==
LOC: M INFU 08:31
PROVIDERS: ATTEND Family Medicine
DX: D50.9 Iron deficiency anemia, unspecified (principal); Z88.8 Allergy status to other drugs, medicaments and biological substances
CPT/HCPCS: 96365; 96366; J1756

== ENCOUNTER 2020-07-16 07:55 | Outpatient (CLI) | payer MEDICARE, MEDICAID ==
[~2020-07-16] VITALS: Ht 160 cm; Wt 103.0 kg
[~2020-07-16 07:55] MED LIST changes: -IRON SUCROSE 225 MG in NS 225 ML IV ONE; -IRON SUCROSE 25 MG in NS 25 ML IV ONE
[2020-07-16 08:00] VITALS: BP 136/68
[2020-07-16] MEDS ORDERED: IRON SUCROSE 25 MG in NS 25 ML IV ONE (08:00)
[2020-07-16] MEDS ORDERED: IRON SUCROSE 300 MG in NS 250 ML OVER 90 MIN. IV ONE ×4 (08:00)
[2020-07-16 09:23] VITALS: BP 139/79
[2020-07-16 10:15] VITALS: BP 142/87
[2020-07-16 12:00] VITALS: BP 111/53
== END 2020-07-16 12:00 | disposition home or self-care (01) ==
LOC: M INFU 07:55
PROVIDERS: ATTEND Family Medicine
DX: D50.9 Iron deficiency anemia, unspecified (principal); Z88.8 Allergy status to other drugs, medicaments and biological substances
CPT/HCPCS: 96365; 96366; J1756

== ENCOUNTER 2020-07-23 07:50 | Outpatient (CLI) | payer MEDICARE, MEDICAID ==
[~2020-07-23] VITALS: Ht 160 cm; Wt 103.0 kg
[2020-07-23] MEDS ORDERED: IRON SUCROSE IV ONE (08:00)
[2020-07-23] MEDS ORDERED: NS IV ONE (08:00)
[2020-07-23] MEDS ORDERED: IRON SUCROSE 250 MG in NS 250 ML IV ONE (08:00)
[2020-07-23] MEDS ORDERED: IRON SUCROSE 25 MG in NS 25 ML IV ONE (08:00)
[2020-07-23 08:03] VITALS: BP 135/82
[2020-07-23 09:25] VITALS: BP 137/72
[2020-07-23 10:30] VITALS: BP 139/85
[2020-07-23 11:32] VITALS: BP 134/88
== END 2020-07-23 11:35 | disposition home or self-care (01) ==
LOC: M INFU 07:50
PROVIDERS: ATTEND Family Medicine
DX: D50.9 Iron deficiency anemia, unspecified (principal); Z88.8 Allergy status to other drugs, medicaments and biological substances
CPT/HCPCS: 96365; 96366; J1756

== ENCOUNTER → 2020-07-26 | Outpatient (REF) | payer MEDICARE, MEDICAID ==
[2020-07-26 15:27] LABS: HEMATOCRIT 39.6 % (36.0-47.0); HEMOGLOBIN 11.6 g/dl (12.0-15.5); MEAN CORPUSCULAR HEMOGLOBIN 22.7 pg (27.0-33.0); MEAN CORPUSCULAR HGB CONC 29.3 g/dl (32.0-36.5); MEAN CORPUSCULAR VOLUME 77.3 fl (80.0-96.0); PLATELET COUNT, AUTOMATED 311 10^3/uL (150-450); RED BLOOD COUNT 5.12 10^6/uL (4.00-5.40); WHITE BLOOD COUNT 5.5 10^3/uL (4.0-10.0)
[2020-07-26 15:34] LABS: PERCENT SATURATION 25.6 % (13.2-45.0)
== END ==
LOC: M PLALAB 12:00
PROVIDERS: ATTEND Family Medicine
DX: D50.9 Iron deficiency anemia, unspecified (principal)

== ENCOUNTER → 2020-08-17 | Outpatient (CLI) | payer MEDICARE, MEDICAID ==
[2020-08-17 14:11] LABS: BASO % 0.8 % (0.0-1.0); EOS # 0.1 10^3/uL (0.0-0.5); EOS % 1.9 % (0.0-3.0); HEMATOCRIT 43.4 % (36.0-47.0); HEMOGLOBIN 12.8 g/dl (12.0-15.5); LYMPH # 1.7 10^3/uL (1.5-5.0); LYMPH % 33.4 % (24.0-44.0); MEAN CORPUSCULAR HEMOGLOBIN 23.8 pg (27.0-33.0); MEAN CORPUSCULAR HGB CONC 29.5 g/dl (32.0-36.5); MEAN CORPUSCULAR VOLUME 80.7 fl (80.0-96.0); MONO # 0.5 10^3/uL (0.0-0.8); MONO % 9.1 % (2.0-8.0); NEUTROPHILS # 2.8 10^3/uL (1.5-8.5); NEUTROPHILS % 54.2 % (36.0-66.0); PLATELET COUNT, AUTOMATED 297 10^3/uL (150-450); RED BLOOD COUNT 5.38 10^6/uL (4.00-5.40); WHITE BLOOD COUNT 5.2 10^3/uL (4.0-10.0)
[2020-08-17 14:19] LABS: ALBUMIN 3.6 GM/DL (3.2-5.2); ALT/SGPT 11 U/L (12-78); BILIRUBIN,DIRECT 0.1 MG/DL (0.0-0.2); BILIRUBIN,TOTAL 0.5 MG/DL (0.2-1.0); BLOOD UREA NITROGEN 8 MG/DL (7-18); CALCIUM LEVEL 8.9 MG/DL (8.5-10.1); CARBON DIOXIDE LEVEL 27 MEQ/L (21-32); CHLORIDE LEVEL 110 MEQ/L (98-107); CHOLESTEROL LEVEL 211 MG/DL (<200); CHOLESTEROL RISK RATIO 3.981 (<5); CREATININE FOR GFR 0.61 MG/DL (0.55-1.30); GLOMERULAR FILTRATION RATE > 60.0 (>58); GLUCOSE, FASTING 85 MG/DL (70-100); HDL CHOLESTEROL 53 MG/DL (>40); LDL CHOLESTEROL 136 MG/DL (<100); NON-HDL-C 158 MG/DL; POTASSIUM SERUM 4.3 MEQ/L (3.5-5.1); SODIUM LEVEL 141 MEQ/L (136-145); TOTAL PROTEIN 6.9 GM/DL (6.4-8.2); TRIGLYCERIDES LEVEL 112 MG/DL (<150)
[2020-08-17 14:30] LABS: HEMOGLOBIN A1c 5.1 %
== END ==
LOC: M PLALAB 10:33
PROVIDERS: ATTEND Psychiatry & Neurology Psychiatry
DX: F41.1 Generalized anxiety disorder (principal); F32.89 Other specified depressive episodes

== ENCOUNTER → 2020-09-17 | Outpatient (CLI) | payer MEDICARE, MEDICAID ==
[2020-09-17 12:52] LABS: BASO # 0.1 10^3/uL (0.0-0.2); BASO % 0.6 % (0.0-1.0); EOS # 0.1 10^3/uL (0.0-0.5); EOS % 0.7 % (0.0-3.0); HEMATOCRIT 45.1 % (36.0-47.0); HEMOGLOBIN 13.8 g/dl (12.0-15.5); LYMPH # 2.4 10^3/uL (1.5-5.0); LYMPH % 29.7 % (24.0-44.0); MEAN CORPUSCULAR HEMOGLOBIN 25.2 pg (27.0-33.0); MEAN CORPUSCULAR HGB CONC 30.6 g/dl (32.0-36.5); MEAN CORPUSCULAR VOLUME 82.4 fl (80.0-96.0); MONO # 0.8 10^3/uL (0.0-0.8); MONO % 9.3 % (2.0-8.0); NEUTROPHILS # 4.8 10^3/uL (1.5-8.5); NEUTROPHILS % 59.3 % (36.0-66.0); PLATELET COUNT, AUTOMATED 335 10^3/uL (150-450); RED BLOOD COUNT 5.47 10^6/uL (4.00-5.40); WHITE BLOOD COUNT 8.1 10^3/uL (4.0-10.0)
[2020-09-17 13:18] LABS: ERYTHROCYTE SEDIMENTATION RATE 3 mm/hr (0-20)
[2020-09-17 13:35] LABS: C REACTIVE PROTEIN QUANTITATIV < 0.30 MG/DL (0.00-0.30); RHEUMATOID FACTOR QUANT < 10.0 IU/ML (<15.0); URIC ACID 2.5 MG/DL (2.6-6.0)
[2020-09-18 18:07] LABS: ANTINUCLEAR ANTIBODIES DIRECT Negative (Negative); Lyme Disease IgG/IgM Antibodie <0.91 ISR (0.00-0.90); Lyme Disease IgM Ab Quantitati <0.80 index (0.00-0.79)
== END ==
LOC: M PLALAB 10:50
PROVIDERS: ATTEND Physician Assistant
DX: M25.531 Pain in right wrist (principal)

== ENCOUNTER → 2020-11-26 | Outpatient (CLI) | payer MEDICARE, MEDICAID ==
[~2020-11-26] MED LIST changes: +OMEP40CA4 PO; -OMEP40CA97 PO
--- NOTE | 2020-11-26 16:32 | REPMRS ---
Patient History The patient states she had a clinical breast exam in September 2020. Family history of prostate cancer at age 54 in father, breast cancer at age 50 in maternal aunt. Taking hormonal contraceptives for 11 years. Patient states no breast complaints today. Patient has signed MRS History Sheet. Digital Woman Screen Mammo: November 26, 2020 - Exam #: [id number] Bilateral CC and MLO view(s) were taken. Technologist: Lorena Jenkins, Technologist Prior study comparison: November 25, 2019, bilateral digital woman screen mammo performed at [facility]. August 06, 2018, bilateral digital woman screen mammo performed at [facility]. FINDINGS: There are scattered fibroglandular densities. Screening. Digital screening (2D) mammography was performed bilaterally in the CC and MLO projections. Additionally, breast tomosynthesis (3D mammography) was performed bilaterally in the CC and MLO projections. Todays exam was compared to the prior exam/exams. By history, the patient has no complaints of a palpable breast abnormality or other significant breast complaints. The breasts are unchanged in size and shape. There are no mila-soft tissue densities or spiculated masses. There is no internal architectural distortion. There are no suspicious mila-calcific clusters. Skin thickening or nipple retraction is not present. IMPRESSION: BI-RADS Category 2- Benign Findings. There is no evidence of malignant alteration of the breasts. Followup examination recommended in one year. The Volpara volumetric breast density category is B, there are scattered areas of fibroglandular densities. This mammogram was read with the assistance of [employer],an FDA approved computer aided detection system for mammography. The lifetime Tyrer-Cuzick score is 19.9 % Due to the density of the breasts or Tyrer Cuzick score of 19.9 % MRI should be considered. Negative x-ray reports should not delay surgical consultation if a dominant or clinically suspicious mass is present. Not all breast cancers can be identified by mammography. Therefore, we recommend that you continue to perform regular breast self-examination and physical examination and then promptly contact your physician of any concerns or changes. Adenosis and dense breasts may obscure an underlying neoplasm. Assessment: BI-RADS/ACR category 2 mammogram. Benign Findings. Recommendation Routine screening mammogram of both breasts in 1 year. Electronically Signed By: J Carlos Rosenbaum DO 11/26/20 [id number]
== END ==
LOC: M WHC 15:27
PROVIDERS: ATTEND Nurse Practitioner Women's Health
DX: Z12.31 Encounter for screening mammogram for malignant neoplasm of breast (principal); Z92.0 Personal history of contraception; F41.1 Generalized anxiety disorder; F32.89 Other specified depressive episodes

== ENCOUNTER → 2021-01-07 | Outpatient (CLI) | payer MEDICARE, MEDICAID ==
[2021-01-07 15:38] LABS: HEMATOCRIT 40.9 % (36.0-47.0); HEMOGLOBIN 12.7 g/dl (12.0-15.5); MEAN CORPUSCULAR HEMOGLOBIN 26.3 pg (27.0-33.0); MEAN CORPUSCULAR HGB CONC 31.1 g/dl (32.0-36.5); MEAN CORPUSCULAR VOLUME 84.7 fl (80.0-96.0); PLATELET COUNT, AUTOMATED 305 10^3/uL (150-450); RED BLOOD COUNT 4.83 10^6/uL (4.00-5.40); WHITE BLOOD COUNT 6.5 10^3/uL (4.0-10.0)
[2021-01-07 16:03] LABS: PERCENT SATURATION 8.9 % (13.2-45.0)
== END ==
LOC: M PLALAB 14:19
PROVIDERS: ATTEND Family Medicine
DX: D50.9 Iron deficiency anemia, unspecified (principal)

== ENCOUNTER 2021-01-13 08:36 | Outpatient (CLI) | payer MEDICARE, MEDICAID ==
[~2021-01-13] VITALS: Ht 160 cm; Wt 109.1 kg
[~2021-01-13 08:36] MED LIST changes: +IRON SUCROSE 250 MG in NS 250 ML IV ONE
[2021-01-13 08:40] VITALS: BP 130/75
[2021-01-13 11:40] VITALS: BP 122/81
== END 2021-01-13 10:50 | disposition home or self-care (01) ==
LOC: M INFU 08:36
PROVIDERS: ATTEND Family Medicine
DX: D50.9 Iron deficiency anemia, unspecified (principal); Z88.8 Allergy status to other drugs, medicaments and biological substances
CPT/HCPCS: 96365; J1756

== ENCOUNTER 2021-01-20 10:18 | Outpatient (CLI) | payer MEDICARE, MEDICAID ==
[~2021-01-20] VITALS: Ht 160 cm; Wt 109.0 kg
[2021-01-20 10:25] VITALS: BP 136/86
[2021-01-20 10:49] VITALS: BP 136/86
[2021-01-20 12:30] VITALS: BP 139/73
== END 2021-01-20 12:30 | disposition home or self-care (01) ==
LOC: M INFU 10:18
PROVIDERS: ATTEND Family Medicine
DX: D50.9 Iron deficiency anemia, unspecified (principal); Z88.8 Allergy status to other drugs, medicaments and biological substances
CPT/HCPCS: 96365; 96366; J1756

== ENCOUNTER 2021-01-27 10:38 | Outpatient (CLI) | payer MEDICARE, MEDICAID ==
[~2021-01-27] VITALS: Ht 160 cm; Wt 108.8 kg
[~2021-01-27 10:38] MED LIST changes: +ALBUTEROL SULFATE 2.5 MG/0.5 ML INH NEB SOLN INH PRN; +EPINEPHrine INJ 1 MG/ML 1ML AMP IM PRN; +NS 1,000 ML IV SCH; +diphenhydrAMINE 50MG/ML VIAL (J1200) IV PRN; +methylPREDNISolone 125MG 2ML VIAL IV PRN
[2021-01-27 10:44] VITALS: BP 134/79
[2021-01-27 12:36] VITALS: BP 108/68
== END 2021-01-27 12:40 | disposition home or self-care (01) ==
LOC: M INFU 10:38
PROVIDERS: ATTEND Family Medicine
DX: D50.9 Iron deficiency anemia, unspecified (principal); Z88.8 Allergy status to other drugs, medicaments and biological substances
CPT/HCPCS: 96365; J1756

== ENCOUNTER → 2021-06-07 | Outpatient (CLI) | payer MEDICARE, MEDICAID ==
[~2021-06-07] MED LIST changes: -ALBUTEROL SULFATE 2.5 MG/0.5 ML INH NEB SOLN INH PRN; -EPINEPHrine INJ 1 MG/ML 1ML AMP IM PRN; -IRON SUCROSE 250 MG in NS 250 ML IV ONE; -NS 1,000 ML IV SCH; +PROHANCE 279.3MG/ML 15ML VIAL As Ordered ONE; +PROHANCE 279.3MG/ML 5ML VIAL As Ordered ONE; -diphenhydrAMINE 50MG/ML VIAL (J1200) IV PRN; -methylPREDNISolone 125MG 2ML VIAL IV PRN
== END ==
LOC: M RAD 10:37
PROVIDERS: ATTEND Nurse Practitioner Women's Health
DX: R92.2 Inconclusive mammogram (principal); Z80.3 Family history of malignant neoplasm of breast; Z91.89 Other specified personal risk factors, not elsewhere classified
CPT/HCPCS: A9576; C8908

== ENCOUNTER → 2021-10-20 | Outpatient (CLI) | payer MEDICARE, MEDICAID ==
[~2021-10-20] MED LIST changes: -PROHANCE 279.3MG/ML 15ML VIAL As Ordered ONE; -PROHANCE 279.3MG/ML 5ML VIAL As Ordered ONE
== END ==
LOC: M PLAIMG 12:45
PROVIDERS: ATTEND Physician Assistant
DX: M79.641 Pain in right hand (principal)

== ENCOUNTER → 2021-12-26 | Outpatient (CLI) | payer MEDICARE, MEDICAID ==
[~2021-12-26] MED LIST changes: -AIMO70IN; +AIMO70IN SQ; +LEXA1TAB2 PO; +UBRO100T PO
== END ==
LOC: M LABSMTC 11:00
PROVIDERS: ATTEND Anesthesiology
DX: Z01.818 Encounter for other preprocedural examination (principal); Z11.52 Encounter for screening for COVID-19

== ENCOUNTER 2021-12-28 08:28 | Day surgery (SDC) | payer MEDICARE, MEDICAID ==
[~2021-12-28] VITALS: Ht 160 cm; Wt 118.4 kg
[~2021-12-28 08:28] MED LIST changes: -MAXA10TA14 PO; +RIZA10TA64 PO
[2021-12-28] MEDS ORDERED: MIDAZOLAM INJ 2MG/2ML VIAL (J2250 PER 1MG) As Ordered ONE (10:16)
[2021-12-28] MEDS ORDERED: fentaNYL 100 MCG/2 ML INJECTION As Ordered ONE (10:19)
[2021-12-28] MEDS ORDERED: LR 1,000 ML IV SCH ×2 (10:30→12:50)
[2021-12-28] MEDS ORDERED: propofoL 200 MG/20 ML VIAL As Ordered ONE ×2 (11:25→12:20)
[2021-12-28] MEDS ORDERED: BUPIVACAINE HCL 0.25% 30ML VIAL As Ordered ONE (11:25)
[2021-12-28] MEDS ORDERED: LIDOCAINE 2% 100MG/5ML SDV (FOR ANES.) As Ordered ONE ×2 (11:25→12:21)
[2021-12-28] MEDS ORDERED: dexameTHASONE 4 MG/ML 1ML VIAL (J1100 PER 1MG) As Ordered ONE (12:21)
[2021-12-28] MEDS ORDERED: ONDANSETRON 4MG 2ML VIAL As Ordered ONE (12:21)
[2021-12-28] MEDS ORDERED: ACETAMINOPHEN 1000MG 100ML IV BTL (OFIRMEV) (J0131 PER 10MG) As Ordered ONE (12:22)
[2021-12-28] MEDS ORDERED: KETOROLAC 60MG 2ML VIAL As Ordered ONE (12:31)
[2021-12-28] MEDS ORDERED: HYDROMORPHONE HCL 0.5 MG/ 0.5 ML SYRINGE (J1170 PER 1) IV PRN (12:50)
[2021-12-28] MEDS ORDERED: MEPERIDINE INJ 25 MG/ML VIAL (J2175) IV PRN (12:50)
[2021-12-28] MEDS ORDERED: PERCOCET 5MG/325MG TAB PO PRN (12:50)
[2021-12-28] MEDS ORDERED: ONDANSETRON 4MG 2ML VIAL IV PRN (12:50)
[2021-12-28 13:41] VITALS: BP 136/89
== END 2021-12-28 14:09 | disposition home or self-care (01) ==
LOC: M SDC 08:28
PROVIDERS: ATTEND Orthopaedic Surgery Hand Surgery
DX: G56.01 Carpal tunnel syndrome, right upper limb (principal); K21.9 Gastro-esophageal reflux disease without esophagitis; K59.00 Constipation, unspecified; G43.909 Migraine, unspecified, not intractable, without status migrainosus; F41.9 Anxiety disorder, unspecified; F32.A Depression, unspecified; Z88.8 Allergy status to other drugs, medicaments and biological substances; Z79.899 Other long term (current) drug therapy
CPT/HCPCS: 29848; 81025; J0131; J1100; J1885; J2250; J2405; J3010

== ENCOUNTER 2022-01-04 12:11 | Emergency (ER) | payer MEDICARE, MEDICAID ==
[~2022-01-04] VITALS: Ht 160 cm; Wt 106.8 kg
[2022-01-04 17:22] VITALS: BP 160/88
== END 2022-01-04 17:26 | disposition home or self-care (01) ==
LOC: M ED 12:11
DX: G89.18 Other acute postprocedural pain (principal); R20.2 Paresthesia of skin; M79.601 Pain in right arm; K21.9 Gastro-esophageal reflux disease without esophagitis; F41.9 Anxiety disorder, unspecified; F32.9 Major depressive disorder, single episode, unspecified; Z98.84 Bariatric surgery status; Z83.2 Family history of diseases of the blood and blood-forming organs and certain disorders involving the immune mechanism; Z79.899 Other long term (current) drug therapy; Z88.8 Allergy status to other drugs, medicaments and biological substances

== ENCOUNTER → 2022-06-12 | Outpatient (CLI) | payer OTHER, MEDICAID | LOC: M WHC 14:23 | PROVIDERS: ATTEND Nurse Practitioner Family | DX: Z12.31 Encounter for screening mammogram for malignant neoplasm of breast (principal) ==

== ENCOUNTER → 2022-06-12 | Outpatient (REF) | payer OTHER, MEDICAID, MEDICARE ==
[~2022-06-12] MED LIST changes: +BUSP15TA47 PO; -SUCR1TAB56; +SUCR1TAB56 PO; +VITMTA PO; +mirena iud
== END ==
LOC: M SFHCWAGY 10:06
PROVIDERS: ATTEND Nurse Practitioner Family
DX: Z12.4 Encounter for screening for malignant neoplasm of cervix (principal)

== ENCOUNTER 2022-08-07 11:57 | Day surgery (SDC) | payer OTHER, MEDICAID ==
[~2022-08-07] VITALS: Ht 162.6 cm; Wt 111.1 kg
[~2022-08-07 11:57] MED LIST changes: +LIDOCAINE 2% 100MG/5ML SDV (FOR ANES.) As Ordered ONE; +NS 1,000 ML IV ONE; +propofoL 200 MG/20 ML VIAL As Ordered ONE
[2022-08-07] MEDS ORDERED: fentaNYL 100 MCG/2 ML INJECTION As Ordered ONE (13:17)
[2022-08-07 14:10] VITALS: BP 176/92
== END 2022-08-07 14:32 | disposition home or self-care (01) ==
LOC: M OPP 11:57
PROVIDERS: ATTEND Internal Medicine Gastroenterology
DX: K22.89 Other specified disease of esophagus (principal); Z98.0 Intestinal bypass and anastomosis status; T18.2XXA Foreign body in stomach, initial encounter; R13.10 Dysphagia, unspecified; D50.9 Iron deficiency anemia, unspecified; Z86.19 Personal history of other infectious and parasitic diseases; Z79.899 Other long term (current) drug therapy; Z88.8 Allergy status to other drugs, medicaments and biological substances; Z98.84 Bariatric surgery status; Z80.0 Family history of malignant neoplasm of digestive organs; Z80.42 Family history of malignant neoplasm of prostate; Z80.3 Family history of malignant neoplasm of breast
CPT/HCPCS: 43245; 43247; J3010

== ENCOUNTER → 2022-08-11 | Outpatient (CLI) | payer OTHER, MEDICAID ==
[~2022-08-11] MED LIST changes: -LIDOCAINE 2% 100MG/5ML SDV (FOR ANES.) As Ordered ONE; -NS 1,000 ML IV ONE; -propofoL 200 MG/20 ML VIAL As Ordered ONE
[2022-08-11 14:47] LABS: HEMATOCRIT 49.3 % (36.0-47.0); HEMOGLOBIN 15.3 g/dl (12.0-15.5); MEAN CORPUSCULAR HEMOGLOBIN 27.4 pg (27.0-33.0); MEAN CORPUSCULAR VOLUME 88.2 fl (80.0-96.0); PLATELET COUNT, AUTOMATED 301 10^3/uL (150-450); RED BLOOD COUNT 5.59 10^6/uL (4.00-5.40)
[2022-08-11 15:24] LABS: ALBUMIN 3.6 G/DL (3.2-5.2); ALKALINE PHOSPHATASE 113 U/L (46-116); ALT/SGPT 13 U/L (7.0-40); AST/SGOT 10 U/L (<34); BILIRUBIN,TOTAL 0.5 MG/DL (0.3-1.2); BLOOD UREA NITROGEN 9 MG/DL (9-23); CALCIUM LEVEL 8.9 MG/DL (8.5-10.1); CARBON DIOXIDE LEVEL 27 MMOL/L (20-31); CHLORIDE LEVEL 108 MMOL/L (98-107); CHOLESTEROL LEVEL 177 MG/DL (<200); CHOLESTEROL RISK RATIO 3.64 (<5); FOLLICLE STIMULATING HORMONE 28.5 mIU/ML; FREE T4 0.85 NG/DL (0.89-1.76); GLOMERULAR FILTRATION RATE > 60.0 (>58); GLUCOSE, FASTING 84 MG/DL (60-100); HDL CHOLESTEROL 48.6 MG/DL (>40); LDL CHOLESTEROL 109.6 MG/DL (<100); LUTEINIZING HORMONE 17.4 mIU/ML; NON-HDL-C 128.4 MG/DL; POTASSIUM SERUM 4.2 MMOL/L (3.5-5.1); PROGESTERONE 0.21 NG/ML; PROLACTIN 6.98 NG/ML; SODIUM LEVEL 141 MMOL/L (136-145); THYROID STIMULATING HORMONE 1.802 uIU/ML (0.55-4.78); TOTAL 25(OH) VITAMIN D 21.3 NG/ML (20.0-100.0); TOTAL PROTEIN 6.8 G/DL (5.7-8.2); TRIGLYCERIDES LEVEL 94 MG/DL (<150); VITAMIN B12 LEVEL 332 PG/ML (211-911)
[2022-08-11 15:30] LABS: MAU/CREAT RATIO 8.5 MCG/MG (0.0-30.0)
[2022-08-11 15:47] LABS: HEMOGLOBIN A1c 5.5 % (4.0-6.0)
[2022-08-15 17:07] LABS: INSULIN LEVEL 10.5 uIU/mL (2.6-24.9)
== END ==
LOC: M PLALAB 10:36
PROVIDERS: ATTEND Internal Medicine Hematology
DX: N95.1 Menopausal and female climacteric states (principal); E78.2 Mixed hyperlipidemia; Z98.84 Bariatric surgery status

== ENCOUNTER → 2022-10-09 | Outpatient (CLI) | payer OTHER, MEDICAID ==
[2022-10-11 12:08] LABS: TISSUE TRANSGLUTAMINASE IgA <2 U/mL (0-3); UNITSIGA FOR GLIADIN IGA 3 units (0-19); UNITSIGG FOR GLIADIN IGG 2 units (0-19)
== END ==
LOC: M LAB 10:43
PROVIDERS: ATTEND Nurse Practitioner Family
DX: K21.9 Gastro-esophageal reflux disease without esophagitis (principal)

== ENCOUNTER 2022-10-29 11:16 | Emergency (ER) | payer OTHER, MEDICAID ==
[~2022-10-29] VITALS: Ht 157.5 cm; Wt 111.4 kg
[2022-10-29 11:53] LABS: VENOUS BASE EXCESS 0.8 (-2.0-2.0); VENOUS O2 SATURATION 55.5 % (60.0-80.0); VENOUS PARTIAL PRESSURE O2 26.9 mmHg (30.0-50.0); VENOUS PH 7.425 UNITS (7.330-7.430); VENOUS TOTAL CO2 26.2 MMOL/L (24.0-28.0)
[2022-10-29 11:58] LABS: BASO # 0.1 10^3/uL (0.0-0.2); BASO % 0.7 % (0.0-1.0); EOS # 0.1 10^3/uL (0.0-0.5); EOS % 1.5 % (0.0-3.0); HEMATOCRIT 45.8 % (36.0-47.0); HEMOGLOBIN 14.8 g/dl (12.0-15.5); LYMPH # 2.4 10^3/uL (1.5-5.0); LYMPH % 34.5 % (24.0-44.0); MEAN CORPUSCULAR HEMOGLOBIN 28.1 pg (27.0-33.0); MEAN CORPUSCULAR HGB CONC 32.3 g/dl (32.0-36.5); MEAN CORPUSCULAR VOLUME 87.1 fl (80.0-96.0); MONO # 0.5 10^3/uL (0.0-0.8); MONO % 7.2 % (2.0-8.0); NEUTROPHILS # 3.8 10^3/uL (1.5-8.5); NEUTROPHILS % 55.2 % (36.0-66.0); PLATELET COUNT, AUTOMATED 285 10^3/uL (150-450); RED BLOOD COUNT 5.26 10^6/uL (4.00-5.40); WHITE BLOOD COUNT 6.8 10^3/uL (4.0-10.0)
[2022-10-29] MEDS ORDERED: BENZONATATE 100MG CAPSULE PO ONE (12:00)
[2022-10-29] MEDS ORDERED: ONDANSETRON 4MG 2ML VIAL IV ONE (12:00)
[2022-10-29] MEDS ORDERED: MORPHINE 4 MG/ML 1ML VIAL IV ONE (12:00)
[2022-10-29] MEDS ORDERED: IPRATROPIUM 0.5MG/ALBUTEROL 2.5MG INH SOL UD 3ML (DUONEB) NEB PRN (12:00)
[2022-10-29 12:12] LABS: INR 0.93; PROTHROMBIN TIME 12.7 SECONDS (12.5-14.5)
[2022-10-29 12:15] LABS: CK-MB VALUE MASS < 1.0 NG/ML (<3.6)
[2022-10-29 12:17] LABS: CPK CREATINE PHOSPHOKINASE 37 U/L (34-145)
[2022-10-29 12:18] LABS: ALBUMIN 3.5 G/DL (3.2-5.2); ALKALINE PHOSPHATASE 116 U/L (46-116); ALT/SGPT 12 U/L (7.0-40); AST/SGOT 9 U/L (<34); BILIRUBIN,DIRECT < 0.1 MG/DL (<0.4); BILIRUBIN,TOTAL 0.4 MG/DL (0.3-1.2); BLOOD UREA NITROGEN 9 MG/DL (9-23); CALCIUM LEVEL 8.2 MG/DL (8.5-10.1); CARBON DIOXIDE LEVEL 24 MMOL/L (20-31); CHLORIDE LEVEL 112 MMOL/L (98-107); CREATININE FOR GFR 0.65 MG/DL (0.55-1.30); GLOMERULAR FILTRATION RATE > 60.0 (>58); GLUCOSE, FASTING 95 MG/DL (60-100); POTASSIUM SERUM 3.5 MMOL/L (3.5-5.1); SODIUM LEVEL 142 MMOL/L (136-145)
[2022-10-29 12:19] LABS: THYROID STIMULATING HORMONE 3.408 uIU/ML (0.55-4.78)
[2022-10-29 13:04] LABS: CK-MB VALUE MASS < 1.0 NG/ML (<3.6)
[2022-10-29 13:07] LABS: CPK CREATINE PHOSPHOKINASE 41 U/L (34-145); MB/CK RELATIVE INDEX 2.43 (< OR =4)
[2022-10-29] MEDS ORDERED: ISOVUE-370 76% 100ML VIAL As Ordered ONE (14:09)
[2022-10-29] MEDS ORDERED: BREAMIS10 MC (15:13)
[2022-10-29] MEDS ORDERED: ALBU6.7H6 INH (15:13)
[2022-10-29] MEDS ORDERED: BENZ200C70 PO (15:14)
[2022-10-29] MEDS ORDERED: AMOX500T PO (15:14)
[2022-10-29] MEDS ORDERED: NAPR-837 PO (15:14)
[2022-10-29 15:19] VITALS: TEMP 98.6
[2022-10-29 15:30] VITALS: BP 135/87; O2SAT 96
[2022-10-29] MEDS ORDERED: AMOXICILLIN 500 MG CAP PO ONE (15:40)
== END 2022-10-29 15:50 | disposition home or self-care (01) ==
LOC: M ED 11:16
DX: R09.1 Pleurisy (principal); R07.89 Other chest pain; R06.02 Shortness of breath; R05.9 Cough, unspecified; R91.8 Other nonspecific abnormal finding of lung field; K21.9 Gastro-esophageal reflux disease without esophagitis; J45.909 Unspecified asthma, uncomplicated; G47.33 Obstructive sleep apnea (adult) (pediatric); F41.0 Panic disorder [episodic paroxysmal anxiety]; I51.7 Cardiomegaly; R16.0 Hepatomegaly, not elsewhere classified; Z97.5 Presence of (intrauterine) contraceptive device; Z79.899 Other long term (current) drug therapy; Z88.8 Allergy status to other drugs, medicaments and biological substances
CPT/HCPCS: 71045; 71275; 80048; 80076; 82550; 82553; 82803; 83605; 83880; 84443; 84484; 85025; 85610; 93005; 93041; 94640; 94760; 96374; 96375; 99285; J2405; Q9967

== ENCOUNTER → 2022-11-15 | Outpatient (REF) | payer OTHER, MEDICAID ==
[~2022-11-15] MED LIST changes: +ALBU6.7H6 INH; +AMOX500T PO; +BENZ200C70 PO; +BREAMIS10 MC; +NAPR-837 PO
== END ==
LOC: M SFHCPLAZ 17:19
PROVIDERS: ATTEND Physician Assistant Medical
DX: R05.8 Other specified cough (principal)

== ENCOUNTER → 2022-11-22 | Outpatient (CLI) | payer OTHER, MEDICAID | LOC: M PLAIMG 11:53 | PROVIDERS: ATTEND Internal Medicine Hematology | DX: J45.21 Mild intermittent asthma with (acute) exacerbation (principal); J40 Bronchitis, not specified as acute or chronic | CPT/HCPCS: 71046; G0463 ==

== ENCOUNTER → 2023-01-11 | Outpatient (CLI) | payer OTHER, MEDICAID | LOC: M CARPUL 13:30 | PROVIDERS: ATTEND Physician Assistant | DX: R06.00 Dyspnea, unspecified (principal) ==

== ENCOUNTER → 2023-02-27 | Outpatient (CLI) | payer OTHER, MEDICAID ==
[~2023-02-27] MED LIST changes: +METHACHOLINE KIT INH ONE
== END ==
LOC: M CARPUL 12:26
PROVIDERS: ATTEND Physician Assistant
DX: R06.00 Dyspnea, unspecified (principal)
CPT/HCPCS: 94070; 95070; J7674

== ENCOUNTER → 2023-03-05 | Outpatient (CLI) | payer OTHER, MEDICAID ==
[~2023-03-05] MED LIST changes: -METHACHOLINE KIT INH ONE
[2023-03-05 14:45] LABS: HEMATOCRIT 47.1 % (36.0-47.0); HEMOGLOBIN 14.9 g/dl (12.0-15.5); MEAN CORPUSCULAR HEMOGLOBIN 28.4 pg (27.0-33.0); MEAN CORPUSCULAR HGB CONC 31.6 g/dl (32.0-36.5); MEAN CORPUSCULAR VOLUME 89.9 fl (80.0-96.0); PLATELET COUNT, AUTOMATED 278 10^3/uL (150-450); RED BLOOD COUNT 5.24 10^6/uL (4.00-5.40); WHITE BLOOD COUNT 6.7 10^3/uL (4.0-10.0)
[2023-03-05 15:03] LABS: HEMOGLOBIN A1c 5.3 % (4.0-6.0)
[2023-03-05 15:15] LABS: CREATININE, URINE 226.8 MG/DL; MAU/CREAT RATIO 5.7 MCG/MG (0.0-30.0)
[2023-03-05 15:19] LABS: ALBUMIN 3.7 G/DL (3.2-5.2); ALKALINE PHOSPHATASE 117 U/L (46-116); ALT/SGPT 12 U/L (7.0-40); AST/SGOT 10 U/L (<34); BILIRUBIN,TOTAL 0.3 MG/DL (0.3-1.2); BLOOD UREA NITROGEN 13 MG/DL (9-23); CARBON DIOXIDE LEVEL 24 MMOL/L (20-31); CHLORIDE LEVEL 111 MMOL/L (98-107); CHOLESTEROL LEVEL 220 MG/DL (<200); CHOLESTEROL RISK RATIO 4.05 (<5); CREATININE FOR GFR 0.92 MG/DL (0.55-1.30); GLOMERULAR FILTRATION RATE > 60.0 (>58); GLUCOSE, FASTING 94 MG/DL (60-100); HDL CHOLESTEROL 54.3 MG/DL (>40); IRON (FE) 45 UG/DL (50-170); LDL CHOLESTEROL 145.9 MG/DL (<100); NON-HDL-C 165.7 MG/DL; POTASSIUM SERUM 4.2 MMOL/L (3.5-5.1); SODIUM LEVEL 144 MMOL/L (136-145); TOTAL 25(OH) VITAMIN D 22.3 NG/ML (20.0-100.0); TOTAL PROTEIN 6.7 G/DL (5.7-8.2); TRIGLYCERIDES LEVEL 99 MG/DL (<150); VITAMIN B12 LEVEL 283 PG/ML (211-911)
[2023-03-05 15:21] LABS: FREE T4 0.94 NG/DL (0.89-1.76); THYROID STIMULATING HORMONE 3.944 uIU/ML (0.55-4.78)
== END ==
LOC: M PLALAB 10:05
PROVIDERS: ATTEND Internal Medicine Hematology
DX: E78.2 Mixed hyperlipidemia (principal); D50.9 Iron deficiency anemia, unspecified; Z79.899 Other long term (current) drug therapy

== ENCOUNTER 2023-04-09 15:55 | Outpatient (CLI) | payer OTHER, MEDICAID ==
[~2023-04-09] VITALS: Ht 157.5 cm; Wt 115.9 kg
[~2023-04-09 15:55] MED LIST changes: +ALBUTEROL SULFATE 2.5MG/0.5ML INH NEB SOLN INH PRN; +EPINEPHrine INJ 1 MG/ML 1ML AMP IM PRN; +NS 1,000 ML IV SCH; +diphenhydrAMINE 50MG/ML VIAL IV PRN; +methylPREDNISolone 125MG 2ML VIAL IV PRN
[2023-04-09] MEDS ORDERED: IRON SUCROSE 200 MG in NS 100 ML IV ONE (16:00)
[2023-04-09 16:42] VITALS: BP 125/74; O2SAT 99
[2023-04-09 17:29] VITALS: BP 139/82; O2SAT 98
== END 2023-04-09 17:30 | disposition home or self-care (01) ==
LOC: M INFU 15:55
PROVIDERS: ATTEND Internal Medicine Hematology
DX: D50.9 Iron deficiency anemia, unspecified (principal); Z88.8 Allergy status to other drugs, medicaments and biological substances
CPT/HCPCS: 96365; J1756

== ENCOUNTER 2023-04-16 15:02 | Outpatient (CLI) | payer OTHER, MEDICAID ==
[~2023-04-16] VITALS: Ht 160 cm; Wt 115.9 kg
[2023-04-16 14:20] VITALS: BP 129/80; O2SAT 94
[~2023-04-16 15:02] MED LIST changes: -NS 1,000 ML IV SCH
[2023-04-16 15:20] VITALS: BP 132/84; O2SAT 98
[2023-04-16] MEDS ORDERED: IRON SUCROSE 200 MG in NS 100 ML OVER 1 HR IV ONE (15:30)
[2023-04-16] MEDS ORDERED: NS 1,000 ML IV SCH (15:30)
[2023-04-16 16:50] VITALS: BP 120/88; O2SAT 99
== END 2023-04-16 16:55 ==
LOC: M INFU 15:02
PROVIDERS: ATTEND Internal Medicine Hematology
DX: D50.9 Iron deficiency anemia, unspecified (principal); Z88.8 Allergy status to other drugs, medicaments and biological substances
CPT/HCPCS: 96365; J1756

== ENCOUNTER 2023-06-22 07:08 | Day surgery (SDC) | payer OTHER, MEDICAID ==
[~2023-06-22] VITALS: Ht 160 cm; Wt 112.8 kg
[~2023-06-22 07:08] MED LIST changes: -ALBUTEROL SULFATE 2.5MG/0.5ML INH NEB SOLN INH PRN; +CETI10TA PO; -EPINEPHrine INJ 1 MG/ML 1ML AMP IM PRN; +LIDOCAINE 2% 100MG/5ML SDV (FOR ANES.) As Ordered ONE; +LR 1,000 ML IV SCH; +ONDANSETRON 4MG 2ML VIAL IV PRN; +THERTAB52 PO; -diphenhydrAMINE 50MG/ML VIAL IV PRN; -methylPREDNISolone 125MG 2ML VIAL IV PRN; +oxyCODONE 5MG TAB PO PRN; +propofoL 200 MG/20 ML VIAL As Ordered ONE
[2023-06-22] MEDS: LR 1,000 ML IV SCH (07:55)
[2023-06-22] MEDS ORDERED: MIDAZOLAM INJ 2MG/2ML VIAL As Ordered ONE (08:30)
[2023-06-22] MEDS ORDERED: ONDANSETRON 4MG 2ML VIAL As Ordered ONE (08:39)
[2023-06-22] MEDS ORDERED: fentaNYL 100 MCG/2 ML INJECTION As Ordered ONE (09:05)
[2023-06-22] MEDS ORDERED: LR 1,000 ML IV SCH (09:30)
[2023-06-22] MEDS ORDERED: fentaNYL 100 MCG/2 ML INJECTION IV PRN (09:30)
[2023-06-22] MEDS ORDERED: ONDANSETRON 4MG 2ML VIAL IV PRN (09:30)
[2023-06-22 11:05] VITALS: BP 136/69; TEMP 97.5; O2SAT 100
== END 2023-06-22 11:05 | disposition home or self-care (01) ==
LOC: M SDC 07:08
PROVIDERS: ATTEND Orthopaedic Surgery Hand Surgery
DX: G56.02 Carpal tunnel syndrome, left upper limb (principal); J45.909 Unspecified asthma, uncomplicated; Z79.899 Other long term (current) drug therapy; G47.30 Sleep apnea, unspecified; Z98.84 Bariatric surgery status; Z88.8 Allergy status to other drugs, medicaments and biological substances
CPT/HCPCS: 29848; 81025; J0665; J2250; J2405; J3010

== ENCOUNTER → 2023-09-28 | Outpatient (REF) | payer OTHER, MEDICAID ==
[~2023-09-28] MED LIST changes: -LIDOCAINE 2% 100MG/5ML SDV (FOR ANES.) As Ordered ONE; -LR 1,000 ML IV SCH; -ONDANSETRON 4MG 2ML VIAL IV PRN; -oxyCODONE 5MG TAB PO PRN; -propofoL 200 MG/20 ML VIAL As Ordered ONE
[2023-10-03 13:47] LABS: HPV APTIMA Not Detected (Not Detected)
== END ==
LOC: M SFHCWAGY 09:44
PROVIDERS: ATTEND Nurse Practitioner Family
DX: Z12.4 Encounter for screening for malignant neoplasm of cervix (principal); R87.610 Atypical squamous cells of undetermined significance on cytologic smear of cervix (ASC-US)
CPT/HCPCS: 87624; G0123

== ENCOUNTER → 2023-09-28 | Outpatient (CLI) | payer OTHER, MEDICAID | LOC: M WHC 14:13 | PROVIDERS: ATTEND Nurse Practitioner Family | DX: Z12.31 Encounter for screening mammogram for malignant neoplasm of breast (principal) ==

== ENCOUNTER → 2024-01-08 | Outpatient (CLI) | payer OTHER, MEDICAID ==
[2024-01-08 10:05] LABS: BASO # 0.1 10^3/uL (0.0-0.2); BASO % 0.8 % (0.0-1.0); EOS # 0.1 10^3/uL (0.0-0.5); EOS % 0.6 % (0.0-3.0); HEMATOCRIT 45.5 % (36.0-47.0); HEMOGLOBIN 14.8 g/dl (12.0-15.5); LYMPH # 1.8 10^3/uL (1.5-5.0); MEAN CORPUSCULAR HEMOGLOBIN 30.4 pg (27.0-33.0); MEAN CORPUSCULAR HGB CONC 32.5 g/dl (32.0-36.5); MEAN CORPUSCULAR VOLUME 93.4 fl (80.0-96.0); MONO # 0.5 10^3/uL (0.0-0.8); MONO % 6.1 % (2.0-8.0); NEUTROPHILS # 5.5 10^3/uL (1.5-8.5); NEUTROPHILS % 68.9 % (36.0-66.0); PLATELET COUNT, AUTOMATED 309 10^3/uL (150-450); RED BLOOD COUNT 4.87 10^6/uL (4.00-5.40); WHITE BLOOD COUNT 7.9 10^3/uL (4.0-10.0)
[2024-01-08 10:21] LABS: HEMOGLOBIN A1c 5.2 % (4.0-6.0)
[2024-01-08 10:28] LABS: IRON (FE) 67 UG/DL (50-170)
[2024-01-08 10:29] LABS: ALBUMIN 3.6 G/DL (3.2-5.2); ALKALINE PHOSPHATASE 122 U/L (46-116); ALT/SGPT 11 U/L (7.0-40); AST/SGOT 8 U/L (<34); BILIRUBIN,TOTAL 0.4 MG/DL (0.3-1.2); BLOOD UREA NITROGEN 10 MG/DL (9-23); CALCIUM LEVEL 8.9 MG/DL (8.5-10.1); CARBON DIOXIDE LEVEL 24 MMOL/L (20-31); CHLORIDE LEVEL 111 MMOL/L (98-107); CHOLESTEROL LEVEL 223 MG/DL (<200); CHOLESTEROL RISK RATIO 4.52 (<5); GLOMERULAR FILTRATION RATE > 60.0 (>58); GLUCOSE, FASTING 90 MG/DL (60-100); HDL CHOLESTEROL 49.3 MG/DL (>40); LDL CHOLESTEROL 146.9 MG/DL (<100); NON-HDL-C 173.7 MG/DL; POTASSIUM SERUM 3.5 MMOL/L (3.5-5.1); SODIUM LEVEL 141 MMOL/L (136-145); TOTAL PROTEIN 6.6 G/DL (5.7-8.2); TRIGLYCERIDES LEVEL 134 MG/DL (<150)
[2024-01-08 10:34] LABS: FREE T4 1.01 NG/DL (0.89-1.76); TOTAL 25(OH) VITAMIN D 19.8 NG/ML (20.0-100.0)
[2024-01-08 10:35] LABS: VITAMIN B12 LEVEL 258 PG/ML (211-911)
== END ==
LOC: M PLALAB 08:53
PROVIDERS: ATTEND Internal Medicine Hematology
DX: N30.00 Acute cystitis without hematuria (principal); E78.2 Mixed hyperlipidemia; D50.9 Iron deficiency anemia, unspecified

== ENCOUNTER → 2024-09-16 | Outpatient (CLI) | payer MEDICARE ==
[~2024-09-16] MED LIST changes: +TOPI-256 PO; -TOPI25TA10 PO
== END ==
LOC: M PLAIMG 11:31
PROVIDERS: ATTEND Student in an Organized Health Care Education/Training Program
DX: M25.512 Pain in left shoulder (principal)

== ENCOUNTER → 2024-09-16 | Outpatient (CLI) | payer MEDICARE ==
[2024-09-16 13:38] LABS: FREE T4 0.99 NG/DL (0.89-1.76); THYROID STIMULATING HORMONE 3.7 uIU/ML (0.55-4.78)
== END ==
LOC: M PLALAB 11:26
PROVIDERS: ATTEND Student in an Organized Health Care Education/Training Program
DX: R79.89 Other specified abnormal findings of blood chemistry (principal); Z79.899 Other long term (current) drug therapy

== ENCOUNTER → 2024-11-03 | Outpatient (CLI) | payer MEDICARE, MEDICAID | LOC: M EKG 10:52 | PROVIDERS: ATTEND Student in an Organized Health Care Education/Training Program | DX: R11.0 Nausea (principal); R94.31 Abnormal electrocardiogram [ECG] [EKG] ==

== ENCOUNTER → 2024-12-16 | Outpatient (CLI) | payer MEDICARE, MEDICAID ==
[2024-12-16 15:39] LABS: BASO # 0.1 10^3/uL (0.0-0.2); BASO % 0.8 % (0.0-1.0); EOS # 0.1 10^3/uL (0.0-0.5); EOS % 2.0 % (0.0-3.0); LYMPH # 2.1 10^3/uL (1.5-5.0); LYMPH % 34.2 % (24.0-44.0); MONO # 0.5 10^3/uL (0.0-0.8); MONO % 7.6 % (2.0-8.0); NEUTROPHILS # 3.3 10^3/uL (1.5-8.5); NEUTROPHILS % 54.9 % (36.0-66.0); PLATELET COUNT, AUTOMATED 261 10^3/uL (150-450)
[2024-12-16 15:47] LABS: CALCIUM LEVEL 9.1 MG/DL (8.5-10.1); CARBON DIOXIDE LEVEL 25.0 MMOL/L (20-31); CHLORIDE LEVEL 109.0 MMOL/L (98-107); CHOLESTEROL LEVEL 210.0 MG/DL (<200); CHOLESTEROL RISK RATIO 4.05 (<5); CREATININE FOR GFR 0.84 MG/DL (0.55-1.30); GLOMERULAR FILTRATION RATE 86.2 (>58); LDL CHOLESTEROL 137.4 MG/DL (<100); NON-HDL-C 158.2 MG/DL; POTASSIUM SERUM 4.3 MMOL/L (3.5-5.1); SODIUM LEVEL 145.0 MMOL/L (136-145); TRIGLYCERIDES LEVEL 104.0 MG/DL (<150)
[2024-12-16 15:49] LABS: FREE T4 0.88 NG/DL (0.89-1.76)
[2024-12-16 16:22] LABS: ESTIMATED AVERAGE GLUCOSE 108.0 MG/DL (60-110)
== END ==
LOC: M PLALAB 13:39
PROVIDERS: ATTEND Student in an Organized Health Care Education/Training Program
DX: Z00.00 Encounter for general adult medical examination without abnormal findings (principal); R03.0 Elevated blood-pressure reading, without diagnosis of hypertension; Z79.899 Other long term (current) drug therapy

== ENCOUNTER → 2025-02-04 | Outpatient (REF) | payer MEDICARE, MEDICAID | LOC: M SFHCPLAZ 14:59 | DX: J06.9 Acute upper respiratory infection, unspecified (principal) ==

== ENCOUNTER → 2025-02-26 | Outpatient (REF) | payer MEDICARE, MEDICAID ==
[2025-02-26 14:02] LABS: PLATELET COUNT, AUTOMATED 343 10^3/uL (150-450)
[2025-02-26 14:34] LABS: ALT/SGPT 9 U/L (7.0-40); AST/SGOT < 8 U/L (<34); CALCIUM LEVEL 9.0 MG/DL (8.5-10.1); CARBON DIOXIDE LEVEL 23 MMOL/L (20-31); CHLORIDE LEVEL 110 MMOL/L (98-107); CHOLESTEROL LEVEL 185 MG/DL (<200); CHOLESTEROL RISK RATIO 3.41 (<5); CREATININE FOR GFR 0.82 MG/DL (0.55-1.30); FREE T4 0.92 NG/DL (0.89-1.76); GLOMERULAR FILTRATION RATE 88.2 (>58); LDL CHOLESTEROL 106.0 MG/DL (<100); NON-HDL-C 130.8 MG/DL; POTASSIUM SERUM 4.1 MMOL/L (3.5-5.1); SODIUM LEVEL 144 MMOL/L (136-145); TRIGLYCERIDES LEVEL 124 MG/DL (<150); VITAMIN B12 LEVEL 237 PG/ML (211-911)
[2025-02-26 14:35] LABS: TOTAL 25(OH) VITAMIN D 26.3 NG/ML (20.0-100.0)
[2025-02-26 14:36] LABS: ESTIMATED AVERAGE GLUCOSE 111.0 MG/DL (60-110)
== END ==
LOC: M LABDRAWP 12:53
DX: E66.01 Morbid (severe) obesity due to excess calories (principal); D51.9 Vitamin B12 deficiency anemia, unspecified; E78.2 Mixed hyperlipidemia; R79.89 Other specified abnormal findings of blood chemistry; D50.9 Iron deficiency anemia, unspecified; E55.9 Vitamin D deficiency, unspecified

== ENCOUNTER → 2025-04-02 | Outpatient (REF) | payer MEDICARE | LOC: M SFHCPLAZ 10:07 | PROVIDERS: ATTEND Nurse Practitioner Adult Health | DX: R09.89 Other specified symptoms and signs involving the circulatory and respiratory systems (principal) ==